=== PATIENT | male | born 1950 | race Caucasian/White ===

== ENCOUNTER → 2018-01-02 11:38 | Outpatient (CLI) | payer MEDICARE, OTHER, SELFPAY ==
[2018-01-02 12:23] LABS: Add Manual Diff / Slide Review NO; Basophils Percent Auto 0.3 % (0-2); Eosinophils Percent Auto 0.3 % (2-4); Hematocrit 41.7 % (41-53); Hemoglobin 14.5 g/dL (13.5-17.5); Lymphocytes Percent Auto 16.1 % (25-40); Mean Corpuscular HGB Conc 34.8 % (30-36); Mean Corpuscular Hemoglobin 32.9 PG (26-34); Mean Corpuscular Volume 94.5 fL (80-100); Monocytes Percent Auto 8.6 % (3-14); Neutrophils Absolute Auto 5400 /uL (3000-5900); Neutrophils Percent Auto 74.7 % (50-75); Platelet Count 112 X10^3/uL (150-400); Red Blood Cell Count 4.41 X10^6/uL (4.5-5.9); Red Cell Distribution Width 13.2 % (11.6-14.8); White Blood Cell Count 7.3 X10^3/uL (4.5-11.0)
[2018-01-02 12:35] LABS: HEMOLYSIS < 15 (0-50); Potassium 4.1 mmol/L (3.4-5.1)
[2018-01-02 12:36] LABS: Alanine Aminotransferase 23 IU/L (21-72); Albumin 4.2 g/dL (3.5-5.0); Albumin Globulin Ratio 1.6 (1.0-2.8); Alkaline Phosphatase 60 U/L (38-126); Aspartate Aminotransferase 27 IU/L (17-59); BUN Creatinine Ratio 14.4 (6-22); Blood Urea Nitrogen 13 mg/dL (9-20); Calcium 9.3 mg/dL (8.4-10.2); Carbon Dioxide 30 mmol/L (22-32); Chloride 106 mmol/L (98-107); Estimated Glomerular Filt Rate > 60.0 mL/min (>60); Globulin 2.6 g/dL (1.7-4.1); Glucose 94 mg/dL (80-110); Sodium 145 mmol/L (137-145); Total Protein 6.8 g/dL (6.3-8.2)
[2018-01-02 13:03] LABS: Prostate Specific Antigen Scrn 0.835 ng/mL (0.1-4.0)
[2018-01-02 13:21] LABS: Thyroid Stimulating Hormone 1.18 uIU/mL (0.47-4.68)
== END ==
PROVIDERS: Family Provider Family Medicine; PCP Family Medicine; Visit Provider Family Medicine
DX: R07.9 Chest pain, unspecified (principal)
CPT/HCPCS: 36415; 80053; 84443; 85025; G0103

== ENCOUNTER → 2018-05-07 08:54 | Outpatient (CLI) | payer MEDICARE, OTHER, SELFPAY ==
--- NOTE | 2018-05-07 08:57 | DI.RAD.S_ITS ---
PROCEDURE: XR CHEST 2V INDICATIONS: pressure injury TECHNIQUE: 2 views of the chest were acquired. COMPARISON: None. FINDINGS: Surgical changes and devices: None. Lungs and pleura: No pleural effusions or pneumothorax. Lungs are clear. Mediastinum: Mediastinal contours are normal. Heart size is normal. Bones and chest wall: No suspicious bony abnormalities. Soft tissues appear unremarkable. IMPRESSION: No acute disease. Dictated by: Andrew Graf M.D. on 05/07/2018 at 12:11 Approved by: Andrew Grfa M.D. on 05/07/2018 at 12:12
== END ==
PROVIDERS: Family Provider Family Medicine; PCP Family Medicine; Visit Provider Family Medicine
DX: S29.8XXA Other specified injuries of thorax, initial encounter (principal); R07.9 Chest pain, unspecified
CPT/HCPCS: 71046

== ENCOUNTER → 2019-01-06 15:42 | Outpatient (CLI) | payer MEDICARE, OTHER, SELFPAY ==
--- NOTE | 2019-01-06 15:46 | DI.MRI.S_ITS ---
PROCEDURE: MR SHOULDER LT WO CON INDICATIONS: L shoulder pain TECHNIQUE: Noncontrast oblique coronal T2 fast spin echo with fat saturation, oblique sagittal T1 spin echo and T2 fast spin echo with fat saturation, axial T1 spin echo and T2 fast spin echo with fat saturation through the shoulder. COMPARISON: [facility], CR, XR SHOULDER 2+ VIEWS RIGHT, 12/27/2018, 16:12. [facility], MR, SHOULDER WITHOUT CONTRAST, 12/30/2013, 8:30. FINDINGS: Image quality: Excellent. Rotator cuff: Partial-thickness slitlike articular sided tear involving the footprint of the supraspinatus tendon image 7 series 8. Possible calcific tendinitis at the junction of the supraspinatus and infraspinatus tendons on image 18 series 9 although this is not definitely radiographically confirmed on the comparison study. There is supraspinatus tendinopathy. Interstitial tearing tendinopathy of the infraspinatus tendon, which extends to the musculotendinous junction. The teres minor tendon appears intact. Subscapularis tendinopathy and thickening with articular surface fraying. No rotator cuff muscle atrophy Bones and bursae: No bone marrow contusions or fractures. Moderate acromioclavicular joint degeneration. The acromion demonstrates conventional anatomy, without an os acromiale. Mild subacromial-subdeltoid bursitis. Capsule and soft tissues: Superior labral tear is seen, with bucket handle appearance on image 11 series 8. There is also long head biceps tendinopathy and a suspected complete rupture seen on image 7 series 6. The rotator interval appears normal, without fibrosis. The coracohumeral ligament is normal in thickness. IMPRESSION: Partial-thickness slitlike tear at the footprint of the supraspinatus tendon (PASTA lesion). Infraspinatus tendinopathy and interstitial tearing. Possible calcific tendinitis although not radiographically confirmed. Subscapular tendinopathy and articular surface fraying. Mild subacromial-subdeltoid bursitis. Superior labral tear with bucket handle configuration. There is also suspected high-grade versus complete rupture of the long head biceps tendon. Please correlate with exam findings. Dictated by: Andrew Graf M.D. on 01/06/2019 at 16:42 Approved by: Andrew Graf M.D. on 01/06/2019 at 16:52
== END ==
PROVIDERS: Family Provider Family Medicine; PCP Family Medicine; Visit Provider Orthopaedic Surgery
DX: M25.512 Pain in left shoulder (principal); M75.52 Bursitis of left shoulder; M75.112 Incomplete rotator cuff tear or rupture of left shoulder, not specified as traumatic; S43.492A Other sprain of left shoulder joint, initial encounter
CPT/HCPCS: 73221

== ENCOUNTER 2019-05-18 18:38 | Observation (INO) | payer MEDICARE, OTHER, SELFPAY ==
--- NOTE | 2019-05-18 18:48 | DI.RAD.S_ITS ---
PROCEDURE: XR CHEST 1V INDICATIONS: chest pain TECHNIQUE: One view of the chest was acquired. COMPARISON: [facility], CR, XR CHEST 2V, 05/07/2018, 8:58. FINDINGS: Surgical changes and devices: None. Lungs and pleura: Lungs are clear. No pleural effusions or pneumothorax. Mediastinum: Mediastinal contours appear normal. Heart size is normal. Bones and chest wall: No suspicious bony lesions. Overlying soft tissues appear unremarkable. IMPRESSION: No acute cardiopulmonary disease. Dictated by: Mary Montes M.D. on 05/18/2019 at 19:15 Approved by: Mary Montes M.D. on 05/18/2019 at 19:16
[2019-05-18 18:49] VITALS: BP 130/78; PULSE 79; RESP 20; TEMP 36.8; O2SAT 97; BMI 24.3
[2019-05-18 19:07] VITALS: BP 118/66; PULSE 69; RESP 12; O2SAT 93
[2019-05-18 19:20] LABS: Add Manual Diff / Slide Review NO; Basophils Absolute Auto 0 /uL (0-100); Basophils Percent Auto 0.5 % (0-2); Eosinophils Absolute Auto 0 /uL (0-450); Eosinophils Percent Auto 0.4 % (2-4); Hematocrit 43.7 % (41-53); Lymphocytes Absolute Auto 1500 /uL (1100-4500); Lymphocytes Percent Auto 20.7 % (25-40); Mean Corpuscular HGB Conc 34.2 % (30-36); Mean Corpuscular Hemoglobin 32.5 PG (26-34); Mean Corpuscular Volume 94.9 fL (80-100); Monocytes Absolute Auto 500 /uL (0-900); Neutrophils Absolute Auto 5200 /uL (1500-7000); Neutrophils Percent Auto 71.4 % (50-75); Platelet Count 104 X10^3/uL (150-400); Red Blood Cell Count 4.61 X10^6/uL (4.5-5.9); Red Cell Distribution Width 13.4 % (11.6-14.8); White Blood Cell Count 7.3 X10^3/uL (4.5-11.0)
--- NOTE | 2019-05-18 19:20 | ED_ITS ---
HPI - Chest Pain General Chief Complaint: Chest Pain Stated Complaint: light chest pain, pressure around eyes, lightheade Time Seen by Provider: 05/18/19 19:20 Source: patient Mode of arrival: Ambulatory History of Present Illness HPI narrative: 68-year-old gentleman with a history of hyperlipidemia presents with increasing exertional dyspnea. He has been having symptoms for a number of months it has been significantly worse in the last week and today while he was gardening noted that he had significant dyspnea some mild dizziness and diaphoresis with minor digging in the garden. This was significantly abnormal for him. His significant other notes that he was quite pale with the episode. It did resolve with rest. On presentation to the emergency department he is not having any chest pain dyspnea nausea or diaphoresis. He notes that his 74-year-old brother had a myocardial infarction just last week. He reports no fever, cough, chills, lower extremity edema, orthopnea, nausea, vomiting or diarrhea Related Data Home Medications Medication Instructions Recorded Confirmed ASCORBIC ACID (VITAMIN C) 1,000 mg PO Q DAY #0 01/02/18 05/18/19 Previous Rx's Medication Instructions Recorded atorvastatin [Lipitor] 10 mg PO HS #90 tab 12/16/18 ibuprofen 600 mg tablet See Rx Instructions .ROUTE 05/12/19 .COMPLEX #180 tablet Allergies Allergy/AdvReac Type Severity Reaction Status Date / Time No Known Drug Allergies Allergy Unknown Verified 05/18/19 18:52 Review of Systems Review of Systems ROS Unobtainable: All systems reviewed & are unremarkable except as noted in HPI and below Patient History Medical History Chronic back pain (Chronic 2003) Chronic cough (Chronic) Chronic headaches (Chronic 2010) Herpes (Chronic 1976) Shoulder pain (Chronic 2004) Surgical History Anesthesia (Resolved) History of right knee surgery (Resolved) History of shoulder surgery (Resolved 2006) History of shoulder surgery (Resolved 2006) Status post hernia repair (Resolved 2012) Family History Father Cancer Lung cancer Mother Cancer Brother No problems noted. Social History household members: significant other Smoking Status: Never smoker Smoking Status: Never smoker alcohol intake frequency: a few times a week Alcohol type: beer Substance Use Type: does not use Exam Narrative Exam Narrative: General: Healthy appearing, in no acute distress. Able to give a complete and coherent history. Well-nourished well-developed HEENT: Moist mucous membranes, normal sclera with reactive pupils, Neck: No JVD, supple Respiratory: Lungs are clear to auscultation, no wheezing no rales no rhonchi. Full and symmetrical air movement Cardiac: Regular rate and rhythm no murmurs no bruits Abdomen: Soft nontender good bowel tones, no flank pain Skin: Warm and dry, no rashes Neurologic: Grossly neurologically intact with no obvious asymmetries or abnormalities Extremities: No trauma, well perfused Psych: Cooperative, appropriate insight and affect Initial Vital Signs Initial Vital Signs: Vital Signs Temperature 98.2 F 05/18/19 18:49 Pulse Rate 79 05/18/19 18:49 Respiratory Rate 20 05/18/19 18:49 Blood Pressure 130/78 05/18/19 18:49 Pulse Oximetry 97 05/18/19 18:49 Scores HEART Score Heart Score history: Moderately Suspicious Heart Score EKG: Normal Heart Score Age: > or = 65 years old Heart Score risk factors: 1-2 risk factors Heart Score troponin: < or = to normal limit Heart Score Total: 4 Course Course Course Narrative: Rather convincing story for increasing exertional angina. Initial workup is unremarkable. Will admit for observation and further cardiac risk stratification. Case is reviewed with Dr. Blankenship. He agrees with hospital admission this evening. Findings and recommendations reviewed with patient who also agrees. Decision to Admit Date: 05/18/19 Decision to Admit time: 21:58 Orders Ordered: ED Orders 05/18/19 18:46 EKG-12 Lead Stat 05/18/19 18:48 XR chest 1V Stat 05/18/19 19:02 Complete Blood Count AUTO DIFF Stat Comprehensive Metabolic Panel Stat Lipase Stat Partial Thromboplastin Time Stat Prothrombin Time INR Stat Troponin & CK Cardiac Panel Stat 05/18/19 21:30 Troponin I Stat Acetaminophen (Tylenol) 650 mg PO Q6HR PRN PRN Reason: Fever/Mild Pain (1-3) Aspirin (Aspirin Ec) 325 mg PO DAILY ANTOINETTE Atorvastatin Calcium (Lipitor) 10 mg PO BEDTIME ANTOINETTE Last Admin: 12/29/19 23:58 Dose: Not Given Documented by: SANJAY Enoxaparin Sodium (Lovenox) 40 mg SUBCUT DAILY [facility] Sodium Chloride (Normal Saline 0.45%) 1,000 mls @ 100 mls/hr IV CONT [facility] Last Admin: 05/18/19 23:56 Dose: 100 mls/hr Documented by: SANJAY Morphine Sulfate (Morphine) 2 mg IV Q5MIN PRN PRN Reason: Chest Pain Naloxone HCl (Narcan) 0.2 mg IV Q2MIN PRN PRN Reason: Opiate Reversal Nitroglycerin (Nitrostat) 0.4 mg SL [id number] PRN PRN Reason: Chest Pain Ondansetron HCl (Zofran) 4 mg IV Q8HR PRN PRN Reason: Nausea And Vomiting Discontinued Medications Aspirin (Aspirin Ec) 324 mg PO NOW ONE Stop: 05/18/19 19:31 Last Admin: 05/18/19 19:36 Dose: Not Given Documented by: SHAE Vital Signs Vital signs: Vital Signs - 8 hr 05/18/19 18:49 05/18/19 19:07 05/18/19 20:10 Temperature 98.2 F Pulse Rate 79 69 64 Respiratory Rate 20 12 14 Blood Pressure 130/78 Blood Pressure [Left Arm] 118/66 120/75 Pulse Oximetry 97 93 98 05/18/19 21:00 Temperature Pulse Rate 65 Respiratory Rate 13 Blood Pressure Blood Pressure [Left Arm] 122/69 Pulse Oximetry 98 MDM - Chest Pain Lab Data Result diagrams: 05/18/19 19:02 05/18/19 19:02 Labs: Lab Results 05/18/19 05/18/19 05/18/19 Range/Units 19:02 19:02 19:02 WBC 7.3 (4.5-11.0) X10^3/uL RBC 4.61 (4.5-5.9) X10^6/uL Hgb 15.0 (13.5-17.5) g/dL Hct 43.7 (41-53) % MCV 94.9 (80-100) fL MCH 32.5 (26-34) PG MCHC 34.2 (30-36) % RDW 13.4 (11.6-14.8) % Plt Count 104 L (150-400) X10^3/uL Neut % (Auto) 71.4 (50-75) % Lymph % (Auto) 20.7 L (25-40) % [place] % (Auto) 7.0 (3-14) % Eos % (Auto) 0.4 L (2-4) % Baso % (Auto) 0.5 (0-2) % Neut # (Auto) 5200 (0409-3646) /uL Lymph # (Auto) 1500 (8850-1441) /uL [place] # (Auto) 500 (0-900) /uL Eos # (Auto) 0 (0-450) /uL Baso # (Auto) 0 (0-100) /uL PT 11.8 (10.1-12.7) SECONDS INR 1.0 (0.9-1.3) APTT 33 (26.4-36.2) SECONDS Sodium 140 (137-145) mmol/L Potassium 3.8 (3.4-5.1) mmol/L Chloride 106 (98-107) mmol/L Carbon Dioxide 27 (22-32) mmol/L BUN 18 (9-20) mg/dL Creatinine 1.00 (0.66-1.25) mg/dL Estimated GFR > 60.0 (>60) mL/min BUN/Creatinine Ratio 18.0 (6-22) Glucose 104 (80-110) mg/dL Calcium 9.3 (8.4-10.2) mg/dL Total Bilirubin 0.8 (0.2-1.3) mg/dL AST 31 (17-59) IU/L ALT 17 (<50) IU/L Alkaline Phosphatase 78 (38-126) U/L Total Creatine Kinase 98 (55-170) U/L CK-MB (CK-2) TNP CK-MB (CK-2) Rel Index TNP Troponin I < 0.012 (0.01-0.034) ng/mL B-Natriuretic Peptide (<100) Total Protein 6.8 (6.3-8.2) g/dL Albumin 4.3 (3.5-5.0) g/dL Globulin 2.5 (1.7-4.1) g/dL Albumin/Globulin Ratio 1.7 (1.0-2.8) Lipase 59 (23-300) U/L 05/18/19 05/18/19 Range/Units 19:02 21:30 WBC (4.5-11.0) X10^3/uL RBC (4.5-5.9) X10^6/uL Hgb (13.5-17.5) g/dL Hct (41-53) % MCV (80-100) fL MCH (26-34) PG MCHC (30-36) % RDW (11.6-14.8) % Plt Count (150-400) X10^3/uL Neut % (Auto) (50-75) % Lymph % (Auto) (25-40) % [place] % (Auto) (3-14) % Eos % (Auto) (2-4) % Baso % (Auto) (0-2) % Neut # (Auto) (0321-8493) /uL Lymph # (Auto) (5460-5003) /uL [place] # (Auto) (0-900) /uL Eos # (Auto) (0-450) /uL Baso # (Auto) (0-100) /uL PT (10.1-12.7) SECONDS INR (0.9-1.3) APTT (26.4-36.2) SECONDS Sodium (137-145) mmol/L Potassium (3.4-5.1) mmol/L Chloride (98-107) mmol/L Carbon Dioxide (22-32) mmol/L BUN (9-20) mg/dL Creatinine (0.66-1.25) mg/dL Estimated GFR (>60) mL/min BUN/Creatinine Ratio (6-22) Glucose (80-110) mg/dL Calcium (8.4-10.2) mg/dL Total Bilirubin (0.2-1.3) mg/dL AST (17-59) IU/L ALT (<50) IU/L Alkaline Phosphatase (38-126) U/L Total Creatine Kinase (55-170) U/L CK-MB (CK-2) CK-MB (CK-2) Rel Index Troponin I < 0.012 (0.01-0.034) ng/mL B-Natriuretic Peptide < 100 (<100) Total Protein (6.3-8.2) g/dL Albumin (3.5-5.0) g/dL Globulin (1.7-4.1) g/dL Albumin/Globulin Ratio (1.0-2.8) Lipase (23-300) U/L ECG Data Attestation: I personally reviewed and interpreted this ECG as follows: Interpretation: Normal sinus rhythm at a rate of 68. Normal axis normal intervals and no evidence of ischemia MDM Narrative Medical decision making narrative: 68-year-old gentleman with hypertension who has history of increasing exertional dyspnea worsening in both intensity and frequency. Episode today was associated with chest pain and some mild diaph oresis. Initial labs and EKG in the emergency department are unremarkable. His heart score is high enough that inpatient overnight stay is appropriate prior to additional cardiac risk stratification testing. He is admitted to Dr. Melgar's service with caring for him this evening Discharge Plan Departure Patient Disposition: Admitted as Observation Clinical Impression: Chest pain Qualifiers: Chest pain type: unspecified Qualified Code(s): R07.9 - Chest pain, unspecified Discharge Date/Time: 05/18/19 22:21 Admit Date/Time: 05/18/19 21:51 Admit Provider: Chandana Melgar
[2019-05-18 19:26] LABS: Prothrombin Time 11.8 SECONDS (10.1-12.7)
[2019-05-18 19:29] LABS: PTT Partial Thromboplastin Tim 33 SECONDS (26.4-36.2)
[2019-05-18 19:31] LABS: Alanine Aminotransferase 17 IU/L (<50); Albumin 4.3 g/dL (3.5-5.0); Albumin Globulin Ratio 1.7 (1.0-2.8); Alkaline Phosphatase 78 U/L (38-126); Aspartate Aminotransferase 31 IU/L (17-59); Bilirubin Total 0.8 mg/dL (0.2-1.3); Blood Urea Nitrogen 18 mg/dL (9-20); Calcium 9.3 mg/dL (8.4-10.2); Carbon Dioxide 27 mmol/L (22-32); Chloride 106 mmol/L (98-107); Creatine Kinase 98 U/L (55-170); Estimated Glomerular Filt Rate > 60.0 mL/min (>60); Globulin 2.5 g/dL (1.7-4.1); Glucose 104 mg/dL (80-110); HEMOLYSIS < 15 (0-50); Lipase 59 U/L (23-300); Potassium 3.8 mmol/L (3.4-5.1); Sodium 140 mmol/L (137-145); Total Protein 6.8 g/dL (6.3-8.2)
[2019-05-18] MEDS: ASPIRIN 81 MG CHEW TAB 324 MG (19:37)
[2019-05-18 19:42] LABS: Troponin I < 0.012 ng/mL (0.01-0.034)
[2019-05-18 20:10] VITALS: BP 120/75; PULSE 64; RESP 14; O2SAT 98
[2019-05-18 21:00] VITALS: BP 122/69; PULSE 65; RESP 13; O2SAT 98
--- NOTE | 2019-05-18 21:37 | PC.NURSE ---
drawn by lab
[2019-05-18 22:01] VITALS: BP 121/69; PULSE 60; O2SAT 98
[2019-05-18 22:08] LABS: Troponin I < 0.012 ng/mL (0.01-0.034)
[2019-05-18 22:31] VITALS: BMI 24.3
[2019-05-18 22:33] VITALS: BP 122/71; PULSE 58; RESP 16; TEMP 36.5; O2SAT 97
[2019-05-18 22:51] LABS: B Type Natriuretic Peptide < 100 (<100)
[2019-05-18] MEDS: SODIUM CHLORIDE 0.45% 1,000 ML 100 ML IV (23:56)
[2019-05-19] VITALS (9 sets, daily range): BP systolic 107–121; BP diastolic 50–75; PULSE 57–66; RESP 16–17; TEMP 36.3–36.7; O2SAT 95–99
--- NOTE | 2019-05-19 02:46 | PC.NURSE ---
Addendum entered by Fadumo Palacio R.N. 05/19/19 05:46: Pt was able to sleep as pain decreased, pt denies pain at this time. Tele reading have been SB, 1st AVB x2 this shift. Addendum entered by Fadumo Palacio R.N. 05/19/19 02:57: VSS, 114/75, 58 ,16 ,97% RA. After O2 in use for 5 minutes pt report improvement in pain. the burning sensation has been resolved. Addendum entered by Fadumo Palacio R.N. 05/19/19 02:52: Addendum entered by Fadumo Palacio R.N. 05/19/19 02:48: Pt has stated that he has chronic pain in shoulder and would like to see if the pain resolves on its' own. Ice pack applied to shoulder and O2 placed on patient at this time as well. Original Note: NOC NOTE Pt reported pain in left shoulder at 0240, rating it 7-8/10, describing it as a burning pain shooting down the arm from the shoulder. Pt was offered Nitro and he declined and Morhine and he declined that at well.
[2019-05-19 06:13] LABS: Add Manual Diff / Slide Review NO; Basophils Absolute Auto 0 /uL (0-100); Basophils Percent Auto 0.4 % (0-2); Eosinophils Absolute Auto 100 /uL (0-450); Eosinophils Percent Auto 1.2 % (2-4); Hematocrit 40.2 % (41-53); Hemoglobin 13.8 g/dL (13.5-17.5); Lymphocytes Absolute Auto 1600 /uL (1100-4500); Lymphocytes Percent Auto 31.7 % (25-40); Mean Corpuscular HGB Conc 34.4 % (30-36); Mean Corpuscular Hemoglobin 32.5 PG (26-34); Mean Corpuscular Volume 94.6 fL (80-100); Monocytes Absolute Auto 500 /uL (0-900); Monocytes Percent Auto 9.1 % (3-14); Neutrophils Absolute Auto 2900 /uL (1500-7000); Neutrophils Percent Auto 57.6 % (50-75); Platelet Count 99 X10^3/uL (150-400); Red Blood Cell Count 4.26 X10^6/uL (4.5-5.9); Red Cell Distribution Width 13.4 % (11.6-14.8)
[2019-05-19 06:25] LABS: Alanine Aminotransferase 14 IU/L (<50); Albumin 3.5 g/dL (3.5-5.0); Albumin Globulin Ratio 1.6 (1.0-2.8); Alkaline Phosphatase 63 U/L (38-126); Aspartate Aminotransferase 25 IU/L (17-59); BUN Creatinine Ratio 21.1 (6-22); Bilirubin Total 0.7 mg/dL (0.2-1.3); Blood Urea Nitrogen 19 mg/dL (9-20); Calcium 8.5 mg/dL (8.4-10.2); Carbon Dioxide 27 mmol/L (22-32); Chloride 108 mmol/L (98-107); Cholesterol 154 mg/dL (140-199); Estimated Glomerular Filt Rate > 60.0 mL/min (>60); Globulin 2.2 g/dL (1.7-4.1); Glucose 112 mg/dL (80-110); HDL Cholesterol 41 mg/dL (40-60); HEMOLYSIS < 15 (0-50); LDL Cholesterol Calculated 97 mg/dL (<100); Potassium 4.1 mmol/L (3.4-5.1); Sodium 141 mmol/L (137-145); Total Protein 5.7 g/dL (6.3-8.2); Triglycerides 80 mg/dL (35-150)
[2019-05-19 06:33] LABS: Troponin I < 0.012 ng/mL (0.01-0.034)
--- NOTE | 2019-05-19 06:43 | DI.ECHO.S_ITS ---
[place] +---------+ [facility] +---------+ : : [address] : : : : [id number] : : : : Phone: [phone]---------+ Echocardiogram Report + + :Name: JOSE ALEJANDRO CASTELAN Study Date: 05/19/2019 Height: 70 in : :[facility] Weight: 186 lb : : Gender: Male BSA: 2.0 m2 : :: 1950 Age: 68 yrs BP: 107/71 mmHg: :Reason For Study: Chest pain : :Ordering Physician: Dr. Ellington : :aRmón Performed By: Bib Lawrence : :Referring: KIZZY BAKER : + + Interpretation Summary The ejection fraction is estimated to be 55-60%. There is mild aortic valve sclerosis. The ascending aorta is mildly enlarged. Procedure: A two-dimensional transthoracic echocardiogram with color flow and Doppler was performed. The study quality was technically adequate. There is no prior echocardiogram noted for this patient. The patient was in a bradycardic rhythm during the exam. Left Ventricle: The left ventricle is normal in size. There is normal left ventricular wall thickness. Left ventricular systolic function is normal. The ejection fraction is estimated to be 55-60%. Left ventricular wall motion is normal. Right Ventricle: The right ventricle is mild to moderately dilated. The right ventricular systolic function is normal. Atria: The left atrial size is normal. The right atrium is mild to moderately dilated. The interatrial septum is intact with no evidence for an atrial septal defect. Mitral Valve: The mitral valve is normal in structure and function. There is no mitral regurgitation noted. Aortic Valve: The aortic valve is trileaflet. There is mild aortic valve sclerosis. The aortic valve opens well. No aortic regurgitation is present. Tricuspid Valve: The tricuspid valve is normal in structure and function. There is trace tricuspid regurgitation. The right ventricular systolic pressure is estimated to be at least 19 mmHg based on an estimated right atrial pressure of 3 mm Hg. Pulmonic Valve: The pulmonic valve is normal in structure and function. There is trace pulmonic regurgitation. Great Vessels: The aortic root is borderline dilated. The ascending aorta is mildly enlarged. The pulmonary artery is normal size. The IVC is of normal diameter and collapses greater than 50% with a sniff. This suggests a low right atrial pressure of 3 mm Hg. Pericardium/ Pleura There is no pericardial effusion. There is no pleural effusion. MMode/2D Measurements & Calculations LVIDd: 4.3 cm LVOT diam: 2.4 cm LVIDs: 3.0 cm Ao root diam: 3.7 cm FS: 30.5 % Aortic Jxn: 3.4 cm EPSS: 0.53 cm asc Aorta Diam: 3.9 cm IVSd: 1.0 cm LVPWd: 1.1 cm LV vences. diameter/BSA (cm/m^2): 2.1 LV sys. diameter/BSA (cm/m^2): 1.5 LA A2 area: 20.1 cm2 RA long axis: 5.6 cm LA A4 area: 17.7 cm2 RA area: 22.3 cm2 LA length (vol): 5.1 cm RA vol: 75.4 ml LA vol: 58.6 ml RA : 37.3 ml/m2 LA vol index: 29.0 ml/m2 TAPSE: 2.2 cm Doppler Measurements & Calculations Ao V2 max: 101.4 cm/sec LVOT Max Zeke: 94.2 cm/sec Ao V2 mean: 69.5 cm/sec LV V1 max P.6 mmHg Ao max P.1 mmHg LV V1 VTI: 20.5 cm Ao mean P.2 mmHg TJ(I,D): 4.0 cm2 Ao V2 VTI: 22.8 cm TJ(V,D): 4.1 cm2 sev ratio: 0.90 TJ indexed to BSA (cm^2/m^2): 2.0 MV E max zeke: 61.6 cm/sec TR max zeke: 201.8 cm/sec MV A max zeke: 99.8 cm/sec TR max P.3 mmHg MV E/A: 0.62 PA V2 max: 72.4 cm/sec Med Peak E' Zeke: 7.4 cm/sec PA V2 mean: 53.0 cm/sec E/E' med: 8.3 PA mean P.3 mmHg Lat Peak E' Zeke: 7.6 cm/sec PA Accel Time: 0.13 sec E/E' lat: 8.1 E/e' average: 8.2 MV dec time: 0.29 sec SV(LVOT): 90.1 ml Reading Physician:01:07 PM
--- NOTE | 2019-05-19 08:11 | PM.HP.1 ---
History of Present Illness History of Present Illness Date Patient Seen: 05/19/19 Time Patient Seen: 08:30 Chief complaint: light chest pain, pressure around eyes, lightheade Narrative: Chest pain Patient admitted last night through the ER for chest pain. He has had none since admission. Patient basically is felt sluggish last 4 months or so. No chest pain no shortness of breath however disc. This felt like he had lack of energy. 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 Past week or so he has noticed increasing shortness of breath with minimal activity as a week progress this is shortness of breath seem to be easier induced with minimal activity. He has had no shortness of breath at rest no PND or orthopnea. Yesterday he developed retrosternal chest pain that was not terribly severe but was present and was a new symptom. He also learned that his brother had had a TIA underwent cardiac catheterization and is was to have a stent placed in 1 of his coronary arteries recently. Female friend wonders if patient has sleep apnea. Patient History Medical History Chronic back pain (Chronic 2003) Chronic cough (Chronic) Chronic headaches (Chronic 2010) Herpes (Chronic 1976) Shoulder pain (Chronic 2004) Surgical History Anesthesia (Resolved) History of right knee surgery (Resolved) History of shoulder surgery (Resolved 2006) History of shoulder surgery (Resolved 2006) Status post hernia repair (Resolved 2012) Family & Social History Family History Father Cancer Lung cancer Mother Cancer Brother No problems noted. Social History: household members significant other Prior Living Arrangements House Safety & Behavioral: Feels Safe in Current Yes Environment Been Physically Hurt or No Threatened By a Person Suicidal Ideation Description None Suicide Plan Description No Plan Tobacco & Substance use: Smoking Status Never smoker alcohol intake frequency a few times a week Substance Use Type does not use Meds Home Medications and Allergies Home Medications Medication Instructions Recorded Confirmed Type ASCORBIC ACID (VITAMIN C) 1,000 mg PO Q DAY #0 01/02/18 05/18/19 History atorvastatin [Lipitor] 10 mg PO HS #90 tab 12/16/18 05/18/19 Rx ibuprofen 600 mg tablet See Rx Instructions .ROUTE 05/12/19 05/18/19 Rx .COMPLEX #180 tablet Allergies Allergy/AdvReac Type Severity Reaction Status Date / Time No Known Drug Allergies Allergy Unknown Verified 05/18/19 18:52 Review of Systems Review of Systems ROS Unobtainable: All systems reviewed & are unremarkable except as noted in HPI and below Exam Vital Signs (past 8 hours): - 05/19/19 02:45 05/19/19 05:52 05/19/19 07:38 Temperature 97.4 F L Pulse Rate 58 L 58 L Respiratory Rate 16 16 Blood Pressure 114/75 114/74 Pulse Oximetry 97 99 98 05/19/19 07:55 Temperature 97.7 F Pulse Rate 57 L Respiratory Rate 17 Blood Pressure 107/71 Pulse Oximetry 95 Oxygen Delivery Method Room Air Oxygen Flow Rate 0 Narrative Exam Narrative: Patient examined hospital bed appears in no distress. Gen.: Patient looks well Skin: Warm well perfused. No prominent lesions. Nonicteric. HEENT: PERRL., normal EOM, external ears canals TMs normal, nasal mucosa normal and midline septum, oropharynx without lesions. Neck: Trachea midline. Thyroid nontender and not enlarged. Carotids without bruits. No lymphadenopathy Back: No obvious deformity or tenderness. Chest: Clear to P&A. Symmetric. CV: RRR no murmur or gallop. No JVD. Abdomen: No masses bruits tenderness or visceromegaly. Neuro: Cranial nerves II through XII grossly intact. Sensory and motor exams intact. Gait normal. Mental status: Intact for screening Extremities: No cyanosis clubbing or edema Musculoskeletal: No gross deformities Lymphatics: Negative for lymphadenopathy, supraclavicular axillary or inguinal Objective Labs Result Diagrams: 05/19/19 05:50 05/19/19 05:50 Labs: Laboratory Results - last 24 hr 05/18/19 05/18/19 05/18/19 19:02 19:02 19:02 WBC 7.3 RBC 4.61 Hgb 15.0 Hct 43.7 MCV 94.9 MCH 32.5 MCHC 34.2 RDW 13.4 Plt Count 104 L Neut % (Auto) 71.4 Lymph % (Auto) 20.7 L [place] % (Auto) 7.0 Eos % (Auto) 0.4 L Baso % (Auto) 0.5 Neut # (Auto) 5200 Lymph # (Auto) 1500 [place] # (Auto) 500 Eos # (Auto) 0 Baso # (Auto) 0 PT 11.8 INR 1.0 APTT 33 Sodium 140 Potassium 3.8 Chloride 106 Carbon Dioxide 27 BUN 18 Creatinine 1.00 Estimated GFR > 60.0 BUN/Creatinine Ratio 18.0 Glucose 104 Calcium 9.3 Total Bilirubin 0.8 AST 31 ALT 17 Alkaline Phosphatase 78 Total Creatine Kinase 98 CK-MB (CK-2) TNP CK-MB (CK-2) Rel Index TNP Troponin I < 0.012 B-Natriuretic Peptide Total Protein 6.8 Albumin 4.3 Globulin 2.5 Albumin/Globulin Ratio 1.7 Triglycerides Cholesterol LDL Cholesterol, Calc HDL Cholesterol Lipase 59 05/18/19 05/18/19 05/19/19 19:02 21:30 05:50 WBC 5.0 RBC 4.26 L Hgb 13.8 Hct 40.2 L MCV 94.6 MCH 32.5 MCHC 34.4 RDW 13.4 Plt Count 99 L Neut % (Auto) 57.6 Lymph % (Auto) 31.7 [place] % (Auto) 9.1 Eos % (Auto) 1.2 L Baso % (Auto) 0.4 Neut # (Auto) 2900 Lymph # (Auto) 1600 [place] # (Auto) 500 Eos # (Auto) 100 Baso # (Auto) 0 PT INR APTT Sodium Potassium Chloride Carbon Dioxide BUN Creatinine Estimated GFR BUN/Creatinine Ratio Glucose Calcium Total Bilirubin AST ALT Alkaline Phosphatase Total Creatine Kinase CK-MB (CK-2) CK-MB (CK-2) Rel Index Troponin I < 0.012 B-Natriuretic Peptide < 100 Total Protein Albumin Globulin Albumin/Globulin Ratio Triglycerides Cholesterol LDL Cholesterol, Calc HDL Cholesterol Lipase 05/19/19 05/19/19 05:50 05:50 WBC RBC Hgb Hct MCV MCH MCHC RDW Plt Count Neut % (Auto) Lymph % (Auto) [place] % (Auto) Eos % (Auto) Baso % (Auto) Neut # (Auto) Lymph # (Auto) [place] # (Auto) Eos # (Auto) Baso # (Auto) PT INR APTT Sodium 141 Potassium 4.1 Chloride 108 H Carbon Dioxide 27 BUN 19 Creatinine 0.90 Estimated GFR > 60.0 BUN/Creatinine Ratio 21.1 Glucose 112 H Calcium 8.5 Total Bilirubin 0.7 AST 25 ALT 14 Alkaline Phosphatase 63 Total Creatine Kinase CK-MB (CK-2) CK-MB (CK-2) Rel Index Troponin I < 0.012 B-Natriuretic Peptide Total Protein 5.7 L Albumin 3.5 Globulin 2.2 Albumin/Globulin Ratio 1.6 Triglycerides 80 Cholesterol 154 LDL Cholesterol, Calc 97 HDL Cholesterol 41 Lipase labs reviewed. Of significance troponin levels negative x2. LDL cholesterol 97 CBC is normal platelet count of [id number] has been stable Chest x-ray unremarkable. EKG unremarkable Assessment & Plan Assessment & Plan narrative: 1. Chest pain certainly consistent coronary artery disease warrant further workup with the stress test and echo pending. 2. Shortness of breath at additionally could be related to a from problem 1. But other issues may well be hypothyroidism. TSH is ordered as well as testosterone level. 3. Patient readily admits he has been stressed out by real state issues perhaps some of this may be related to that. 4. Patient denies depression but has been for some time dying of ovarian cancer. 5. Hyperlipidemia stable. 6. Patient to be monitored this morning and above tests to be ordered. Assuming they had these are done today patient will be discharged later today yet to be determined
--- NOTE | 2019-05-19 09:07 | PC.NURSE ---
Addendum entered by Hanna Mccabe R.N. 05/19/19 14:53: Back from stress test and back on tele. Continues to state he feels good. Denies chest pain/pressure/palpitations or SOB. Wondering when Dr Melgar might let him go home. This fiction and nonfiction prose writer placed call to Dr Melgar's office and left message asking him to call back to discuss plan. Patient aware and agreeable. Denies needs at this time. Addendum entered by Hanna Mccabe R.N. 05/19/19 13:55: Off floor for stress test approx [id number] Addendum entered by Hanna Mccabe R.N. 05/19/19 12:49: Spoke with [facility]uc [facility] before lunch, asked if patient is ok to eat and they said yes, a light lunch that he should be done with by 1230 at the latest- same discussed with patient and he agreed to comply. Informed patient that, as of now, his stress test should be happening somewhere around 1400. Original Note: Stress test: Spoke with nuc med at breakfast time. They said to go ahead with breakfast, but no caffeine. This fiction and nonfiction prose writer spoke with patient and , informed no caffeine until after stress test (including decaf and chocolate). They verbalized understanding of the same.
[2019-05-19] MEDS: SODIUM CHLORIDE 0.9% FLUSH 10 ML IV (09:53)
[2019-05-19] MEDS: ASPIRIN EC 325 MG TABLET PO (10:02)
[2019-05-19 10:57] LABS: Cholesterol 164 mg/dL (140-199); HDL Cholesterol 43 mg/dL (40-60); LDL Cholesterol Calculated 108 mg/dL (<100); Triglycerides 64 mg/dL (35-150)
--- NOTE | 2019-05-19 13:29 | CM.DANOTE ---
DCP/Assessment: Reviewed chart. Patient is a 68yr old male admitted to I.. with chest pain. PCP is Dr. Melgar. Primary payor is 1)Medicare 2)[facility]. Met with patient explained CM/SW role. Patient alert and oriented during interview. Patient reports that he walks daily and keeps himself in good health. Patient lost his spouse to cancer in 2018. Patient now resides with his significant other/Ashly. Patient does not anticipate any d/c planning needs. Patient reports being completely I with all ADL's. P: Home when stable. ROXANNA Grimaldo Discharge Planning/Care Management CM Discharge Assessment Start: 05/19/19 13:17 Freq: Status: Active Protocol: Document 05/19/19 13:17 KJS (Rec: 05/19/19 13:29 KJS [id number]) Discharge Planning Assessment Assigned Director Of Nursing ROXANNA Grimaldo Contact Information Ashly (significant other) [phone] Advance Directives? No History Provided By Patient,Medical Record Prior Living Arrangements House Household Members significant other Type of transporation used prior to Drives own vehicle admit Independent with ADL's Yes Is patient alert and oriented? Yes Caregiver for Another No Barriers to Discharge No Discharge Plan Home Transportation Arrangement Significant other to provide transport. Referrals Initiated None needed Whiteboard Updated in Patient Room with Yes name and ext. # of Director Of Nursing Review Status In Process Next Review Type Continued Stay Review
--- NOTE | 2019-05-19 16:49 | PM.DS.1 ---
History of Present Illness History of Present Illness Chief complaint: light chest pain, pressure around eyes, lightheade Narrative: Chest pain Patient admitted last night through the ER for chest pain. He has had none since admission. Patient basically is felt sluggish last 4 months or so. No chest pain no shortness of breath however disc. This felt like he had lack of energy. 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 Past week or so he has noticed increasing shortness of breath with minimal activity as a week progress this is shortness of breath seem to be easier induced with minimal activity. He has had no shortness of breath at rest no PND or orthopnea. Yesterday he developed retrosternal chest pain that was not terribly severe but was present and was a new symptom. He also learned that his brother had had a TIA underwent cardiac catheterization and is was to have a stent placed in 1 of his coronary arteries recently. Female friend wonders if patient has sleep apnea. Discharge Providers Provider Date of admission: 05/18/19 21:51 Discharge Date: 05/19/19 Primary care physician: Chandana Melgar MD Discharge provider: Chandana Melgar MD Summary Hospital Course Discharge Diagnosis: 1. Chest pain 2. Normal echocardiogram. 3. Normal nuclear stress test. 4. Hyperlipidemia stable Hospital Course: The patient was admitted for evaluation of chest pain. He also had associated shortness of breath. Evaluation included chest x-ray lab work thyroid testosterone all of which were normal. Echocardiogram showed ejection fraction 60% with normal valves. Nuclear stress test performed this afternoon that was totally normal no evidence for any ischemic heart disease Status at Discharge Cognitive/behavioral status at discharge: at baseline, oriented Functional status at discharge: independent ambulation Overall status at discharge: patient is back to baseline Exam Vital Signs (past 8 hours): - 05/19/19 11:29 05/19/19 15:50 Temperature 97.6 F 97.4 F L Pulse Rate 59 L 66 Respiratory Rate 17 17 Blood Pressure 114/71 107/68 Pulse Oximetry 96 97 Oxygen Delivery Method Room Air Oxygen Flow Rate 0 Objective Labs Result Diagrams: 05/19/19 05:50 05/19/19 05:50 Labs: Laboratory Results - last 24 hr 05/18/19 05/18/19 05/18/19 19:02 19:02 19:02 WBC 7.3 RBC 4.61 Hgb 15.0 Hct 43.7 MCV 94.9 MCH 32.5 MCHC 34.2 RDW 13.4 Plt Count 104 L Neut % (Auto) 71.4 Lymph % (Auto) 20.7 L [place] % (Auto) 7.0 Eos % (Auto) 0.4 L Baso % (Auto) 0.5 Neut # (Auto) 5200 Lymph # (Auto) 1500 [place] # (Auto) 500 Eos # (Auto) 0 Baso # (Auto) 0 PT 11.8 INR 1.0 APTT 33 Sodium 140 Potassium 3.8 Chloride 106 Carbon Dioxide 27 BUN 18 Creatinine 1.00 Estimated GFR > 60.0 BUN/Creatinine Ratio 18.0 Glucose 104 Calcium 9.3 Total Bilirubin 0.8 AST 31 ALT 17 Alkaline Phosphatase 78 Total Creatine Kinase 98 CK-MB (CK-2) TNP CK-MB (CK-2) Rel Index TNP Troponin I < 0.012 B-Natriuretic Peptide Total Protein 6.8 Albumin 4.3 Globulin 2.5 Albumin/Globulin Ratio 1.7 Triglycerides Cholesterol LDL Cholesterol, Calc HDL Cholesterol Lipase 59 TSH Testosterone Level 05/18/19 05/18/19 05/19/19 19:02 21:30 05:50 WBC 5.0 RBC 4.26 L Hgb 13.8 Hct 40.2 L MCV 94.6 MCH 32.5 MCHC 34.4 RDW 13.4 Plt Count 99 L Neut % (Auto) 57.6 Lymph % (Auto) 31.7 [place] % (Auto) 9.1 Eos % (Auto) 1.2 L Baso % (Auto) 0.4 Neut # (Auto) 2900 Lymph # (Auto) 1600 [place] # (Auto) 500 Eos # (Auto) 100 Baso # (Auto) 0 PT INR APTT Sodium Potassium Chloride Carbon Dioxide BUN Creatinine Estimated GFR BUN/Creatinine Ratio Glucose Calcium Total Bilirubin AST ALT Alkaline Phosphatase Total Creatine Kinase CK-MB (CK-2) CK-MB (CK-2) Rel Index Troponin I < 0.012 B-Natriuretic Peptide < 100 Total Protein Albumin Globulin Albumin/Globulin Ratio Triglycerides Cholesterol LDL Cholesterol, Calc HDL Cholesterol Lipase TSH Testosterone Level 05/19/19 05/19/19 05/19/19 05:50 05:50 09:50 WBC RBC Hgb Hct MCV MCH MCHC RDW Plt Count Neut % (Auto) Lymph % (Auto) [place] % (Auto) Eos % (Auto) Baso % (Auto) Neut # (Auto) Lymph # (Auto) [place] # (Auto) Eos # (Auto) Baso # (Auto) PT INR APTT Sodium 141 Potassium 4.1 Chloride 108 H Carbon Dioxide 27 BUN 19 Creatinine 0.90 Estimated GFR > 60.0 BUN/Creatinine Ratio 21.1 Glucose 112 H Calcium 8.5 Total Bilirubin 0.7 AST 25 ALT 14 Alkaline Phosphatase 63 Total Creatine Kinase CK-MB (CK-2) CK-MB (CK-2) Rel Index Troponin I < 0.012 B-Natriuretic Peptide Total Protein 5.7 L Albumin 3.5 Globulin 2.2 Albumin/Globulin Ratio 1.6 Triglycerides 80 64 Cholesterol 154 164 LDL Cholesterol, Calc 97 108 H HDL Cholesterol 41 43 Lipase TSH Testosterone Level 05/19/19 05/19/19 09:50 09:50 WBC RBC Hgb Hct MCV MCH MCHC RDW Plt Count Neut % (Auto) Lymph % (Auto) [place] % (Auto) Eos % (Auto) Baso % (Auto) Neut # (Auto) Lymph # (Auto) [place] # (Auto) Eos # (Auto) Baso # (Auto) PT INR APTT Sodium Potassium Chloride Carbon Dioxide BUN Creatinine Estimated GFR BUN/Creatinine Ratio Glucose Calcium Total Bilirubin AST ALT Alkaline Phosphatase Total Creatine Kinase CK-MB (CK-2) CK-MB (CK-2) Rel Index Troponin I B-Natriuretic Peptide Total Protein Albumin Globulin Albumin/Globulin Ratio Triglycerides Cholesterol LDL Cholesterol, Calc HDL Cholesterol Lipase TSH 1.50 Testosterone Level 508.0 Discharge Plan Discharge Plan Patient Disposition: Home Discharge comment: Appointment with Dr. Melgar in 2 weeks Sleep study to be scheduled as an outpatient Discharge orders & Medications Prescriptions: Continued ASCORBIC ACID (VITAMIN C) 1,000 mg PO Q DAY Qty: 0 RF: 0 atorvastatin [Lipitor] 10 mg tablet 10 mg PO HS Qty: 90 RF: 1 ibuprofen 600 mg tablet See Rx Instructions .ROUTE .COMPLEX Qty: 180 RF: 0 Follow up/Referrals: Chandana Melgar MD [Primary Care Provider] - Discharge Health Status Multidrug resistant organism: No MDRO Diet/Activity/Treatments Diet: Diet as Tolerated Activity: As tolerated Discharge Data Primary Care Provider: Chandana Melgar Attending Provider: Chandana Melgar Admit Date/Time: 05/18/19 21:51
--- NOTE | 2019-05-19 17:20 | PC.NURSE ---
Katerine shift note: Patient discharge home per Dr. Meglar. No c/o chest pain, SOB or dizziness. Discussed importance of F/U with Dr. Melgar in two weeks, diet, activity and medications. Verbalized understanding of instructions. Ambulating independently in room with SO at side. Discharge via private vehicle with belongings.
--- NOTE | 2019-05-19 18:12 | DI.NM.S_ITS ---
DATE OF SERVICE: 05/19/2019 PROCEDURE: Exercise perfusion study. INDICATIONS: Chest pain. RADIOPHARMACEUTICAL: 16.6 mCi of technetium-99m Myoview IV was injected at stress. This is an exercise perfusion study only. CARDIAC STRESS: Patient underwent exercise perfusion stress test under the supervision of an attending staff. Patient walked on Samir protocol for 9 minutes 04 seconds and achieved 90% of target heart rate and normal blood pressure response. Baseline EKG revealed sinus rhythm. Stress EKG did not reveal any obvious inducible ischemic changes. There were no significant arrhythmias. Patient didn't have any anginal pains. He achieved -24% of functional aerobic impairment and 10.1 METs of workload. RAW DATA: There is increased of diaphragmatic activity. GATED STUDY: Stress LV ejection fraction 81% without any obvious wall motion abnormalities. Stress end-diastolic volume is 113 mL. Lung/heart ratio is 0.32, which is within normal limits. MYOCARDIAL PERFUSION SCAN: Stress supine and stress prone images were compared to each other. Stress supine images revealed [id number] size, mildly decreased perfusion of inferior wall and inferior apex which got completely resolved during prone images suggestive of diaphragmatic tissue attenuation artifact. CONCLUSION: I will call this study a normal myocardial perfusion study with evidence of diaphragmatic tissue attenuation artifact which got resolved during prone images. Patient had good exercise tolerance. No ischemic changes. No significant anginal symptoms. No significant sustained arrhythmias. Overall, this is a low-risk myocardial perfusion scan. Phil Craft - HANNAH/kasi/ab doc#: [id number]/job#: [id number] dd: 05/19/2019 16:48:00 dt: 05/19/2019 18:05:00 DICTATING MD/COPIES TO: Delmis Gomez MD COPIES MNE: ESMER
== END 2019-05-19 17:38 | disposition home or self-care (01) ==
LOC: ED 19:20 → AC 21:52
PROVIDERS: Family Medicine; Admitting Provider Family Medicine; Emergency Provider Emergency Medicine; Family Provider Family Medicine; PCP Family Medicine; Visit Provider Family Medicine
DX: R07.9 Chest pain, unspecified (principal); R06.02 Shortness of breath; R42 Dizziness and giddiness; E78.5 Hyperlipidemia, unspecified
CPT/HCPCS: 36415; 71045; 78451; 80053; 80061; 82550; 83690; 83880; 84403; 84443; 84484; 85025; 85610; 85730; 93005; 93016; 93017; 93018; 93306; 99284; 99285; G0378; A9502; J7050

== ENCOUNTER → 2019-07-22 10:18 | Outpatient (CLI) | payer MEDICARE, OTHER, SELFPAY ==
--- NOTE | 2019-07-22 10:23 | DI.RAD.S_ITS ---
PROCEDURE: XR HAND RT MIN 3V INDICATIONS: finger injury TECHNIQUE: 3 views of the hand(s) acquired. COMPARISON: None. FINDINGS: Bones: No fractures or dislocations. Carpal bones are normally aligned. No suspicious bony lesions. Soft tissues: No suspicious soft tissue calcifications. IMPRESSION: No acute radiographic findings. If pain persists, followup imaging in 5-7 days is recommended to exclude occult fracture. Dictated by: Teena Jordan M.D. on 07/22/2019 at 15:31 Approved by: Teena Jordan M.D. on 07/22/2019 at 15:31
== END ==
PROVIDERS: Family Provider Family Medicine; PCP Family Medicine; Referring Provider Family Medicine; Visit Provider Family Medicine
DX: S69.91XA Unspecified injury of right wrist, hand and finger(s), initial encounter (principal); M79.89 Other specified soft tissue disorders; X58.XXXA Exposure to other specified factors, initial encounter
CPT/HCPCS: 73130

== ENCOUNTER → 2019-07-28 09:00 | Outpatient (CLI) | payer MEDICARE, OTHER, SELFPAY ==
--- NOTE | 2019-07-28 09:02 | DI.RAD.S_ITS ---
PROCEDURE: XR HAND RT MIN 3V INDICATIONS: Finger injury, right hand, non-healing TECHNIQUE: 3 views of the hand(s) acquired. COMPARISON: [facility], CR, XR HAND RT MIN 3V, 07/22/2019, 10:22. FINDINGS: Bones: No fractures or dislocations. Carpal bones are normally aligned. No suspicious bony lesions. Chondrocalcinosis and/or small loose bodies project in the ulnocarpal compartment. This appears unchanged. First CMC and triscaphe joint degeneration Chronic deformity of the fifth metacarpal Soft tissues: No suspicious soft tissue calcifications. IMPRESSION: No fracture. If the patient's pain or other symptoms persist, consider further evaluation with MRI Chronic degenerative changes as above Dictated by: Andrew Graf M.D. on 07/28/2019 at 14:33 Approved by: Andrew Graf M.D. on 07/28/2019 at 14:36
== END ==
PROVIDERS: Family Provider Family Medicine; PCP Family Medicine; Referring Provider Family Medicine; Visit Provider Family Medicine
DX: S69.91XA Unspecified injury of right wrist, hand and finger(s), initial encounter (principal); M18.11 Unilateral primary osteoarthritis of first carpometacarpal joint, right hand; X58.XXXA Exposure to other specified factors, initial encounter
CPT/HCPCS: 73130

== ENCOUNTER → 2020-04-23 09:43 | Outpatient (CLI) | payer MEDICARE, OTHER, SELFPAY ==
[2020-04-23 10:40] LABS: Add Manual Diff / Slide Review NO; Basophils Absolute Auto 0 /uL (0-100); Basophils Percent Auto 0.3 % (0-2); Eosinophils Absolute Auto 100 /uL (0-450); Eosinophils Percent Auto 0.9 % (2-4); Hematocrit 43.3 % (41-53); Hemoglobin 14.7 g/dL (13.5-17.5); Lymphocytes Absolute Auto 1800 /uL (1100-4500); Lymphocytes Percent Auto 32.3 % (25-40); Mean Corpuscular HGB Conc 34.1 % (30-36); Mean Corpuscular Hemoglobin 32.4 PG (26-34); Monocytes Absolute Auto 600 /uL (0-900); Monocytes Percent Auto 9.8 % (3-14); Neutrophils Absolute Auto 3200 /uL (1500-7000); Neutrophils Percent Auto 56.7 % (50-75); Platelet Count 119 X10^3/uL (150-400); Red Blood Cell Count 4.55 X10^6/uL (4.5-5.9); Red Cell Distribution Width 13.4 % (11.6-14.8); White Blood Cell Count 5.6 X10^3/uL (4.5-11.0)
[2020-04-23 11:02] LABS: Alanine Aminotransferase 19 IU/L (<50); Albumin Globulin Ratio 1.5 (1.0-2.8); Alkaline Phosphatase 72 U/L (38-126); Aspartate Aminotransferase 32 IU/L (17-59); BUN Creatinine Ratio 15.1 (6-22); Bilirubin Total 1.1 mg/dL (0.2-1.3); Blood Urea Nitrogen 13 mg/dL (9-20); Calcium 9.7 mg/dL (8.4-10.2); Carbon Dioxide 30 mmol/L (22-32); Chloride 106 mmol/L (98-107); Cholesterol 171 mg/dL (140-199); Estimated Glomerular Filt Rate > 60.0 mL/min (>60); Globulin 2.6 g/dL (1.7-4.1); Glucose 93 mg/dL (80-110); HDL Cholesterol 50 mg/dL (40-60); HEMOLYSIS < 15 (0-50); LDL Cholesterol Calculated 105 mg/dL (<100); Potassium 5.3 mmol/L (3.4-5.1); Sodium 139 mmol/L (137-145); Total Protein 6.6 g/dL (6.3-8.2); Triglycerides 81 mg/dL (35-150)
[2020-04-23 11:28] LABS: Prostate Specific Antigen Scrn 1.13 ng/mL (0.1-4.0)
== END ==
PROVIDERS: Family Provider Family Medicine; PCP Family Medicine; Referring Provider Family Medicine; Visit Provider Family Medicine
DX: E78.5 Hyperlipidemia, unspecified (principal); Z12.5 Encounter for screening for malignant neoplasm of prostate; I49.9 Cardiac arrhythmia, unspecified
CPT/HCPCS: 36415; 80053; 80061; 85025; G0103

== ENCOUNTER → 2020-05-28 08:08 | Outpatient (CLI) | payer MEDICARE, OTHER, SELFPAY ==
[2020-05-04 12:56] VITALS: BMI 24.3
--- NOTE | 2020-05-28 | DI.RAD.S_ITS ---
PROCEDURE: FL SHOULDER INJECTION MR/CT LT INDICATIONS: Left shoulder pain, unspecified chronicity COMPARISON: None. TECHNIQUE: The indications, alternatives, benefits, risks, and complications of the procedure were explained to the patient. Written informed consent was obtained and placed in the chart. The shoulder was examined fluoroscopically and a site for needle placement chosen for entry into the glenohumeral joint from an anterior approach. The skin was prepped and draped in a sterile fashion, and 1% lidocaine infiltrated from skin down to joint capsule. A spinal needle was inserted into the glenohumeral joint, and a small amount of iodinated contrast media injected to confirm intra-articular placement of the needle tip. This was followed by approximately 12 mL dilute solution of a gadolinium containing MR contrast agent. The needle was removed and a dressing was applied. The patient was given postprocedural instructions and sent to the MR suite for MR imaging. FINDINGS: A single fluoroscopic spot image demonstrates intra-articular location of injected iodinated contrast. IMPRESSION: Successful fluoroscopically guided administration of dilute Gadolinium solution into the shoulder joint for MR arthrogram. Dictated by: Andrew Graf M.D. on 05/28/2020 at 10:34 Approved by: Andrew Graf M.D. on 05/28/2020 at 10:35
--- NOTE | 2020-05-28 | DI.MRI.S_ITS ---
PROCEDURE: MR SHOULDER LT W CON INDICATIONS: Left shoulder pain, unspecified chronicity TECHNIQUE: After the administration of 12 mL of dilute intra-articular Gadolinium contrast, oblique coronal T1 and T2 spin echo with fat saturation, oblique sagittal T1 spin echo with and without fat saturation, oblique sagittal T2 fast spin echo with fat saturation, axial T1 spin echo with fat saturation through the shoulder. COMPARISON: [facility], MR, MR SHOULDER LT WO CON, 01/06/2019, 15:49. FINDINGS: Image quality: Mildly suboptimal secondary to scattered postsurgical micro metallic susceptibility artifact Rotator cuff: Supraspinatus tendinopathy, with low-grade bursal and articular surface fraying. No full-thickness tear identified. There is also interstitial tearing and tendinopathy involving the infraspinatus muscle. At the junction of the supraspinatus and infraspinatus muscle, there is interstitial tearing, and low-grade bursal sided tear. Teres minor appears intact. Subscapularis tendinopathy. No definite rotator cuff muscle atrophy. Mild fatty infiltration of the infraspinatus muscle. Bones and bursae: No bone marrow contusions or fractures. Moderate acromioclavicular joint degeneration. Acromion demonstrates conventional anatomy, without an os acromiale. No definite subacromial-subdeltoid bursitis. Capsule and soft tissues: Labrum: Irregularity mild hypertrophy of the anterior labrum, with intermediate intrasubstance signal change. This suggests chronic anterior labral tear and/or postsurgical sequela, superimposed degeneration. Blunted appearance of the superior labrum which could also represent postsurgical sequela versus ill-defined tear. Long head of the biceps tendon not seen and this could be due to prior surgery/rupture. Distally, below the intertubercular groove, there is tendinopathy, thickening and intrasubstance signal change for example image 17/5. The rotator interval appears normal, without fibrosis. Coracohumeral ligament intact. IMPRESSION: Supraspinatus tendinopathy with low-grade bursal and articular surface fraying. This appears progressed since the prior study Tendinopathy and interstitial tearing to the musculotendinous junction involving the infraspinatus muscle. This is also progressed since the prior study Interstitial tearing and low-grade bursal sided tear of the junction of the supraspinatus and infraspinatus muscle. This finding appears new Chronic appearing anterior and superior labral tear versus postsurgical sequela. Superimposed degenerative changes are likely present, which appears slightly more consolidated and less conspicuous since the prior study Intra-articular segment of the long head biceps tendon not seen due to prior surgery/rupture, since the prior study Dictated by: Andrew Graf M.D. on 05/28/2020 at 10:22 Approved by: Andrew Graf M.D. on 05/28/2020 at 10:34
== END ==
PROVIDERS: Family Provider Family Medicine; PCP Family Medicine; Referring Provider Family Medicine; Visit Provider Orthopaedic Surgery
DX: M25.512 Pain in left shoulder (principal)
CPT/HCPCS: 23350; 73222; 77002

== ENCOUNTER → 2021-05-16 08:04 | Outpatient (CLI) | payer MEDICARE, OTHER, SELFPAY ==
[2020-05-04 12:56] VITALS: BMI 24.3
--- NOTE | 2021-05-16 08:05 | DI.US.S_ITS ---
PROCEDURE: US SCROTUM INDICATIONS: LEFT SCROTAL PAIN TECHNIQUE: Real-time scanning was performed of the scrotum and testicles, with image documentation. Color and pulse Doppler interrogation was performed of both testicles. COMPARISON: None. FINDINGS: Right: Testicle is normal in size at 4.4 x 3.1 x 2 cm, and homogenous in echotexture. Epididymis is normal in overall size and morphology. No hydrocele or varicoceles. Overlying scrotal skin is normal in thickness. Left: Testicle is normal in size at 4.3 x 2.9 x 2.1 cm, and homogeneous in echotexture. Epididymis is normal in overall size and morphology. No hydrocele or varicoceles. Overlying scrotal skin is normal in thickness. Doppler: Color and pulse Doppler demonstrate normal and symmetric arterial flow in both testicles. IMPRESSION: 1. No testicular torsion or No epididymoorchitis demonstrated. 2. No testicular mass. 3. No hydrocele or varicocele. Dictated by: Prakash Martinez M.D. on 05/16/2021 at 9:20 Approved by: Prakash Martinez M.D. on 05/16/2021 at 9:23
== END ==
PROVIDERS: Family Provider Family Medicine; PCP Family Medicine; Referring Provider Physician Assistant; Visit Provider Physician Assistant
DX: N50.812 Left testicular pain (principal)
CPT/HCPCS: 76870

== ENCOUNTER → 2021-05-16 08:57 | Outpatient (CLI) | payer MEDICARE, OTHER, SELFPAY ==
[2020-05-04 12:56] VITALS: BMI 24.3
[2021-05-16 09:47] LABS: Add Manual Diff / Slide Review NO; Basophils Absolute Auto 0 /uL (0-100); Basophils Percent Auto 0.4 % (0-2); Eosinophils Absolute Auto 100 /uL (0-450); Eosinophils Percent Auto 0.9 % (2-4); Hematocrit 44.5 % (41-53); Hemoglobin 14.9 g/dL (13.5-17.5); Lymphocytes Absolute Auto 1600 /uL (1100-4500); Lymphocytes Percent Auto 24.1 % (25-40); Mean Corpuscular HGB Conc 33.4 % (30-36); Mean Corpuscular Hemoglobin 31.9 PG (26-34); Mean Corpuscular Volume 95.4 fL (80-100); Monocytes Absolute Auto 600 /uL (0-900); Monocytes Percent Auto 8.8 % (3-14); Neutrophils Absolute Auto 4300 /uL (1500-7000); Neutrophils Percent Auto 65.8 % (50-75); Platelet Count 130 X10^3/uL (150-400); Red Blood Cell Count 4.66 X10^6/uL (4.5-5.9); Red Cell Distribution Width 13.9 % (11.6-14.8); White Blood Cell Count 6.5 X10^3/uL (4.5-11.0)
[2021-05-16 10:10] LABS: Alanine Aminotransferase 17 IU/L (<50); Albumin 4.1 g/dL (3.5-5.0); Albumin Globulin Ratio 1.6 (1.0-2.8); Alkaline Phosphatase 69 U/L (38-126); Aspartate Aminotransferase 26 IU/L (17-59); BUN Creatinine Ratio 16.8 (6-22); Bilirubin Total 0.6 mg/dL (0.2-1.3); Blood Urea Nitrogen 17 mg/dL (9-20); Calcium 9.7 mg/dL (8.4-10.2); Carbon Dioxide 30 mmol/L (22-32); Chloride 107 mmol/L (98-107); Cholesterol 193 mg/dL (140-199); Estimated Glomerular Filt Rate > 60.0 mL/min (>60); Globulin 2.6 g/dL (1.7-4.1); Glucose 96 mg/dL (80-110); HDL Cholesterol 54 mg/dL (40-60); HEMOLYSIS < 15 (0-50); LDL Cholesterol Calculated 111 mg/dL (<100); Potassium 4.7 mmol/L (3.4-5.1); Sodium 140 mmol/L (137-145); Total Protein 6.7 g/dL (6.3-8.2); Triglycerides 139 mg/dL (35-150)
[2021-05-16 10:39] LABS: Prostate Specific Antigen Scrn 1.15 ng/mL (0.1-4.0)
== END ==
PROVIDERS: Family Provider Family Medicine; PCP Family Medicine; Referring Provider Family Medicine; Visit Provider Family Medicine
DX: E78.5 Hyperlipidemia, unspecified (principal); Z12.5 Encounter for screening for malignant neoplasm of prostate
CPT/HCPCS: 36415; 80053; 80061; 85025; G0103

== ENCOUNTER 2021-05-24 10:44 | Emergency (ER) | payer MEDICARE, OTHER, SELFPAY ==
[2020-05-04 12:56] VITALS: BMI 24.3
[2021-05-24 11:03] VITALS: BP 131/80; PULSE 64; RESP 18; TEMP 37.1; O2SAT 98; BMI 24.0
[2021-05-24 11:56] LABS: Add Manual Diff / Slide Review NO; Basophils Absolute Auto 0 /uL (0-100); Basophils Percent Auto 0.5 % (0-2); Eosinophils Absolute Auto 0 /uL (0-450); Eosinophils Percent Auto 0.7 % (2-4); Hematocrit 43.2 % (41-53); Hemoglobin 14.5 g/dL (13.5-17.5); Lymphocytes Absolute Auto 1500 /uL (1100-4500); Lymphocytes Percent Auto 24.7 % (25-40); Mean Corpuscular HGB Conc 33.6 % (30-36); Mean Corpuscular Hemoglobin 31.8 PG (26-34); Mean Corpuscular Volume 94.6 fL (80-100); Monocytes Absolute Auto 600 /uL (0-900); Monocytes Percent Auto 9.1 % (3-14); Neutrophils Absolute Auto 4000 /uL (1500-7000); Platelet Count 109 X10^3/uL (150-400); Red Blood Cell Count 4.56 X10^6/uL (4.5-5.9); White Blood Cell Count 6.1 X10^3/uL (4.5-11.0)
[2021-05-24 12:13] LABS: Alanine Aminotransferase 16 IU/L (<50); Albumin 4.2 g/dL (3.5-5.0); Albumin Globulin Ratio 1.6 (1.0-2.8); Alkaline Phosphatase 66 U/L (38-126); Aspartate Aminotransferase 29 IU/L (17-59); BUN Creatinine Ratio 21.4 (6-22); Bilirubin Total 0.7 mg/dL (0.2-1.3); Blood Urea Nitrogen 18 mg/dL (9-20); Calcium 9.3 mg/dL (8.4-10.2); Carbon Dioxide 27 mmol/L (22-32); Chloride 109 mmol/L (98-107); Estimated Glomerular Filt Rate > 60.0 mL/min (>60); Globulin 2.7 g/dL (1.7-4.1); Glucose 93 mg/dL (80-110); HEMOLYSIS < 15 (0-50); Lipase 58 U/L (23-300); Potassium 4.1 mmol/L (3.4-5.1); Sodium 141 mmol/L (137-145); Total Protein 6.9 g/dL (6.3-8.2)
[2021-05-24 13:08] VITALS: BP 150/70; PULSE 57; O2SAT 98
--- NOTE | 2021-05-24 13:31 | DI.CT.S_ITS ---
PROCEDURE: CT ABDOMEN PELVIS W CON INDICATIONS: lower abd pain. IV contast only TECHNIQUE: After the administration of intravenous contrast, axial sections acquired from the lung bases to the pubic symphysis. Coronal and sagittal reformats were performed. For radiation dose reduction, the following was used: automated exposure control, adjustment of mA and/or kV according to patient size. COMPARISON: [facility], CT, ABDOMEN/PELVIS WITH CONTRAST, 10/01/2015, 10:05. FINDINGS: Image quality: Excellent. Lung bases: Unremarkable. Heart: No significant findings. ABDOMEN: Liver: Unremarkable. Gallbladder: Unremarkable. Biliary ducts: Unremarkable. Pancreas: Unremarkable. Spleen: Unremarkable. Adrenal Glands: Unremarkable. Kidneys and Ureters: Unremarkable. Stomach and Bowel: Small hiatal hernia. Stomach and small bowel loops are unremarkable. Mild sigmoid diverticulosis without evidence of diverticulitis. Peritoneum: No abnormal intraperitoneal fluid. No free air. Ventral Wall: No hernias. Abdominal Nodes: No retroperitoneal or mesenteric adenopathy by size criteria. Vessels: The abdominal aorta is normal in caliber with mild thrombus. There is borderline aneurysmal dilatation of the right common iliac artery with [id number] thrombus, not flow limiting. PELVIS: Pelvic Organs: Unremarkable. Bladder: Mild diffuse bladder wall thickening. Enlarged prostate. Bladder is nondistended. Pelvic Nodes: No enlarged lymph nodes. Miscellaneous: Small left inguinal hernia containing fat. Bones: Mild lumbar degenerative change. No lytic or blastic bony lesions. IMPRESSION: 1. Sigmoid diverticulosis. 2. Mild diffuse bladder wall thickening suggest possible cystitis versus bladder outlet obstruction secondary to an enlarged prostate. 3. Mild aneurysmal dilatation of the right common iliac artery with [id number] thrombus. 4. Diverticulosis without evidence of diverticulitis. 5. Small hiatal hernia. Dictated by: Dorian Clinton M.D. on 05/24/2021 at 14:49 Approved by: Dorian Clinton M.D. on 05/24/2021 at 14:55
[2021-05-24 15:05] VITALS: BP 127/72; PULSE 62; RESP 16; O2SAT 99
--- NOTE | 2021-05-24 15:31 | ED.GENADULT ---
HPI - General Adult General Chief complaint: Abdominal Pain Stated complaint: Lower right abd pain Time Seen by Provider: 05/24/21 13:53 Source: patient Mode of arrival: Ambulatory Related Data Home Medications Medication Instructions Recorded Confirmed atorvastatin 10 mg tablet 10 mg PO QAM 05/24/21 Allergies Allergy/AdvReac Type Severity Reaction Status Date / Time No Known Drug Allergies Allergy Unknown Verified 05/24/21 11:07 Patient History Medical History (Updated 05/24/21 @ 16:40 by Soniya Wheeler MD) Cardiac arrhythmia (10/19/14) Chest pain Chronic back pain (2003) Chronic cough Chronic headaches (2010) GERD (gastroesophageal reflux disease) Herpes (1976) Hiatal hernia Hyperlipidemia Other and unspecified hyperlipidemia (04/02/11) Shoulder pain, left Testicular pain, left Testicular/scrotal pain Surgical History Anesthesia History of right knee surgery History of shoulder surgery (2006) History of shoulder surgery (2006) Status post hernia repair (2012) Family History Father Cancer Lung cancer Mother Cancer Brother No problems noted. Social History household members: significant other Smoking Status: Never smoker Smoking Status: Never smoker alcohol intake frequency: a few times a week Alcohol type: beer Substance Use Type: does not use Exam Initial Vital Signs Initial Vital Signs: Vital Signs Temperature 98.7 F 05/24/21 11:03 Pulse Rate 64 05/24/21 11:03 Respiratory Rate 18 05/24/21 11:03 Blood Pressure 131/80 05/24/21 11:03 Pulse Oximetry 98 05/24/21 11:03 Course Orders Ordered: ED Orders 05/24/21 11:08 EKG-12 Lead Stat 05/24/21 11:48 Complete Blood Count AUTO DIFF Stat Comprehensive Metabolic Panel Stat Lipase Stat 05/24/21 13:31 CT abdomen pelvis w con Stat Vital Signs Vital signs: Vital Signs - 8 hr 05/24/21 11:03 05/24/21 13:08 05/24/21 15:05 Temperature 98.7 F Pulse Rate 64 57 L 62 Respiratory Rate 18 16 Blood Pressure 131/80 150/70 H 127/72 Pulse Oximetry 98 98 99 Medical Decision Making Lab Data Result diagrams: 05/24/21 11:48 05/24/21 11:48 Labs: Lab Results 05/24/21 05/24/21 Range/Units 11:48 11:48 WBC 6.1 (4.5-11.0) X10^3/uL RBC 4.56 (4.5-5.9) X10^6/uL Hgb 14.5 (13.5-17.5) g/dL Hct 43.2 (41-53) % MCV 94.6 (80-100) fL MCH 31.8 (26-34) PG MCHC 33.6 (30-36) % RDW 14.0 (11.6-14.8) % Plt Count 109 L (150-400) X10^3/uL Neut % (Auto) 65.0 (50-75) % Lymph % (Auto) 24.7 L (25-40) % Villalba % (Auto) 9.1 (3-14) % Eos % (Auto) 0.7 L (2-4) % Baso % (Auto) 0.5 (0-2) % Neut # (Auto) 4000 (1581-6351) /uL Lymph # (Auto) 1500 (8094-3343) /uL Villalba # (Auto) 600 (0-900) /uL Eos # (Auto) 0 (0-450) /uL Baso # (Auto) 0 (0-100) /uL Sodium 141 (137-145) mmol/L Potassium 4.1 (3.4-5.1) mmol/L Chloride 109 H (98-107) mmol/L Carbon Dioxide 27 (22-32) mmol/L BUN 18 (9-20) mg/dL Creatinine 0.84 (0.66-1.25) mg/dL Estimated GFR > 60.0 (>60) mL/min BUN/Creatinine Ratio 21.4 (6-22) Glucose 93 (80-110) mg/dL Calcium 9.3 (8.4-10.2) mg/dL Total Bilirubin 0.7 (0.2-1.3) mg/dL AST 29 (17-59) IU/L ALT 16 (<50) IU/L Alkaline Phosphatase 66 (38-126) U/L Total Protein 6.9 (6.3-8.2) g/dL Albumin 4.2 (3.5-5.0) g/dL Globulin 2.7 (1.7-4.1) g/dL Albumin/Globulin Ratio 1.6 (1.0-2.8) Lipase 58 (23-300) U/L Urine Dip Bedside Urine Glucose Negative Bedside Urine Bilirubin - Negative Bedside Urine Ketone - Negative Urine Specific Mccall 1.030 Bedside Urine Occult Blood - Negative Bedside Urine pH 6.0 Bedside Urine Protein - Negative Bedside Urine Urobilinogen - Negative Bedside Urine Nitrite - Negative Bedside Urine Leukocytes - Negative Esterase Point of care testing: Urine Dip Bedside Urine Glucose Negative Bedside Urine Bilirubin - Negative Bedside Urine Ketone - Negative Urine Specific Mccall 1.030 Bedside Urine Occult Blood - Negative Bedside Urine pH 6.0 Bedside Urine Protein - Negative Bedside Urine Urobilinogen - Negative Bedside Urine Nitrite - Negative Bedside Urine Leukocytes - Negative Esterase Imaging Data CT scan - abdomen/pelvis: Radiologist's Impression: FINDINGS:? Image quality:? Excellent.? ? Lung bases:? Unremarkable. Heart:? No significant findings. ? ABDOMEN: Liver:? Unremarkable.? ? Gallbladder:? Unremarkable.? ? Biliary ducts:? Unremarkable.? ? Pancreas:? Unremarkable.? ? Spleen:? Unremarkable.? ? Adrenal Glands:? Unremarkable.? ? Kidneys and Ureters:? Unremarkable.? ? ? Stomach and Bowel:? Small hiatal hernia.? Stomach and small bowel loops are unremarkable. ?Mild sigmoid diverticulosis without evidence of diverticulitis. Peritoneum:? No abnormal intraperitoneal fluid.? No free air.? ? Ventral Wall: ? No hernias.? Abdominal Nodes:? No retroperitoneal or mesenteric adenopathy by size criteria.? Vessels:? The abdominal aorta is normal in caliber with mild thrombus.? There is borderline aneurysmal dilatation of the right common iliac artery with [id number] thrombus, not flow limiting. ? PELVIS: Pelvic Organs:? Unremarkable.? ? Bladder:? Mild diffuse bladder wall thickening.? Enlarged prostate.? Bladder is nondistended.? Pelvic Nodes: No enlarged lymph nodes.? Miscellaneous:? Small left inguinal hernia containing fat. ? Bones:? Mild lumbar degenerative change.? No lytic or blastic bony lesions. ? ? IMPRESSION:? ? 1. Sigmoid diverticulosis. ? 2. Mild diffuse bladder wall thickening suggest possible cystitis versus bladder outlet obstruction secondary to an enlarged prostate.? ? 3. Mild aneurysmal dilatation of the right common iliac artery with [id number] thrombus. ? 4. Diverticulosis without evidence of diverticulitis.? ? 5. Small hiatal hernia.? ? Dictated by: Dorian Clinton M.D. on 05/24/2021 at 14:49 ? ? MDM Narrative Medical decision making narrative: CT scan is reviewed with Dr. Leon. The mild moderate thrombus with in the mild aneurysmal dilatation of the right common iliac artery is likely a more chronic finding. It certainly is not limiting blood flow. He has no other clinical signs or sequelae of additional clot. No DVTs and no PEs. No stroke-like symptoms. Findings are reviewed with him. In light of his testicular pain lower pelvic pain the mild bladder wall thickening on the CT scan I believe the urology consult is going to be the next step in figuring out what is causing his discomfort. He is noting some mild bladder outlet obstruction symptoms but not complaining of acute urinary retention issues at any time. Findings are reviewed with him and he will schedule appointment with 1 of our urologists with next available appointments. He has worsening symptoms in certainly return to the emergency department. Discharge Plan Departure Patient Disposition: Home Clinical Impression: Acute pelvic pain, Bladder wall thickening, Right testicular pain, Aneurysmal dilatation Activity Restrictions/Additional Instructions: Thank you for coming in today I do not have a complete explanation for the lower pelvic pain and the right testicular pain. I do know, that you do not have appendicitis, colitis or an acute abdominal infection Your bladder wall is somewhat thickened and that may be contributing to the deep pelvic floor pain that you are experiencing. You have a small aneurysm, a ballooning of the vessel, in your right iliac artery and that little balloon has a small bit of clot in it. The clot is not hindering flow in any way. You do not have a twisted testicle, epididymitis or evidence of prostatitis. I would like you to see 1 of our urologists to do a more thorough exam to see if they may have a better explanation and some options for symptomatic relief. Please call Dr. Morales, urologist his office #[phone] to schedule an appointment. In the meantime, with this small clot in the inguinal artery I would recommend a baby aspirin daily. If your symptoms are worsening, please return to the ER Prescriptions: No Action atorvastatin 10 mg tablet 10 mg PO QAM 0RF Referrals: Shanae Morales MD [Physician] - Jose Solis DO [Primary Care Provider] -
== END 2021-05-24 17:02 | disposition home or self-care (01) ==
PROVIDERS: Emergency Provider Emergency Medicine; Family Provider Family Medicine; PCP Family Medicine
DX: R10.2 Pelvic and perineal pain (principal); N50.811 Right testicular pain; I72.3 Aneurysm of iliac artery; R03.0 Elevated blood-pressure reading, without diagnosis of hypertension
CPT/HCPCS: 36415; 74177; 80053; 81003; 83690; 85025; 93005; 93010; 99284; Q9967

== ENCOUNTER → 2022-11-03 08:35 | Outpatient (CLI) | payer MEDICARE, OTHER, SELFPAY ==
[2020-05-04 12:56] VITALS: BMI 24.3
[2022-11-03 09:41] LABS: Add Manual Diff / Slide Review NO; Basophils Absolute Auto 0 /uL (0-100); Basophils Percent Auto 0.5 % (0-2); Eosinophils Absolute Auto 100 /uL (0-450); Eosinophils Percent Auto 1.6 % (2-4); Hemoglobin 14.4 g/dL (13.5-17.5); Lymphocytes Absolute Auto 1900 /uL (1100-4500); Lymphocytes Percent Auto 30.3 % (25-40); Mean Corpuscular HGB Conc 34.3 % (30-36); Mean Corpuscular Volume 93.3 fL (80-100); Monocytes Absolute Auto 600 /uL (0-900); Monocytes Percent Auto 9.4 % (3-14); Neutrophils Absolute Auto 3600 /uL (1500-7000); Neutrophils Percent Auto 58.2 % (50-75); Platelet Count 126 X10^3/uL (150-400); Red Cell Distribution Width 13.5 % (11.6-14.8); White Blood Cell Count 6.1 X10^3/uL (4.5-11.0)
[2022-11-03 10:37] LABS: BUN Creatinine Ratio 18.9 (6-22); Blood Urea Nitrogen 18 mg/dL (9-20); Calcium 8.9 mg/dL (8.4-10.2); Carbon Dioxide 28 mmol/L (22-32); Chloride 106 mmol/L (98-107); Cholesterol 166 mg/dL (140-199); Estimated Glomerular Filt Rate > 60 mL/min (>60); Glucose 85 mg/dL (80-110); HDL Cholesterol 49 mg/dL (40-60); HEMOLYSIS < 15 (0-50); LDL Cholesterol Calculated 100 mg/dL (<100); Potassium 4.6 mmol/L (3.4-5.1); Sodium 140 mmol/L (137-145); Triglycerides 83 mg/dL (35-150)
== END ==
PROVIDERS: Family Provider Family Medicine; PCP Family Medicine; Referring Provider Family Medicine; Visit Provider Family Medicine
DX: E78.5 Hyperlipidemia, unspecified (principal)
CPT/HCPCS: 36415; 80048; 80061; 85025

== ENCOUNTER → 2023-03-22 13:13 | Outpatient (CLI) | payer MEDICARE, OTHER, SELFPAY ==
[2020-05-04 12:56] VITALS: BMI 24.3
[2023-03-22 14:53] LABS: Prostate Specific Antigen 1.34 ng/mL (0.10-4.00)
== END ==
PROVIDERS: Family Provider Family Medicine; PCP Family Medicine; Referring Provider Family Medicine; Visit Provider Family Medicine
DX: R39.9 Unspecified symptoms and signs involving the genitourinary system (principal); Z80.42 Family history of malignant neoplasm of prostate; Z12.5 Encounter for screening for malignant neoplasm of prostate
CPT/HCPCS: 36415; 84153; G0103

== ENCOUNTER → 2024-01-10 08:42 | Outpatient (CLI) | payer MEDICARE, OTHER, SELFPAY ==
[2024-01-10 07:13] VITALS: BMI 24.3
--- NOTE | 2024-01-10 08:45 | DI.RAD.S_ITS ---
PROCEDURE: XR FINGER RT MIN 2V INDICATIONS: thumb MCP swelling/pain/tingling TECHNIQUE: AP hand, 2 views of the 1st finger(s) acquired. COMPARISON: None. FINDINGS: Bones: No acute fractures or dislocations. Mild 1st CMC joint space narrowing and tiny juxta-articular osteophytosis. Tiny ossific density adjacent to the ulnar styloid may reflect sequela of remote injury versus accessory ossicle. No suspicious bony lesions. No osseous erosions or, osteolysis or periosteal reaction. Soft tissues: No suspicious soft tissue calcifications. IMPRESSION: 1. No acute bony abnormality. If clinical symptoms persist, consider repeat radiograph in 10-14 days versus cross-sectional imaging. 2. Mild 1st CMC joint osteoarthritis. Dictated by: Rosana Bucio M.D. on 01/10/2024 at 9:09 Approved by: Rosana Bucio M.D. on 01/10/2024 at 9:12
== END ==
PROVIDERS: Family Provider Family Medicine; PCP Family Medicine; Referring Provider Student in an Organized Health Care Education/Training Program; Visit Provider Student in an Organized Health Care Education/Training Program
DX: M18.11 Unilateral primary osteoarthritis of first carpometacarpal joint, right hand (principal); M25.441 Effusion, right hand
CPT/HCPCS: 73140

== ENCOUNTER → 2024-05-09 14:44 | Outpatient (CLI) | payer MEDICARE, OTHER, SELFPAY ==
[2024-01-10 07:13] VITALS: BMI 24.3
--- NOTE | 2024-05-09 14:46 | DI.RAD.S_ITS ---
PROCEDURE: XR ELBOW LT MIN 3V INDICATIONS: point tender prox ulna fall 7 D QUALITY AUDIT REPRESENTATIVE; ROM/strength intact TECHNIQUE: 3 views of the elbow were acquired. COMPARISON: None. FINDINGS: Bones: No fractures or dislocations. No suspicious bony lesions. Soft tissues: Slight elbow joint effusion. No suspicious soft tissue calcifications. IMPRESSION: No osseous trauma found. Slight pleural effusion elevating the anterior fat pad on the lateral view. If hidden fracture is clinically suspected follow-up by elbow MRI could be obtained which also would accurately detect ligamentous injury. Dictated by: Julian Amaya M.D. on 05/09/2024 at 15:06 Approved by: Julian Amaya M.D. on 05/09/2024 at 15:08
== END ==
LOC: RAD 14:45
PROVIDERS: Family Provider Family Medicine; PCP Family Medicine; Referring Provider Student in an Organized Health Care Education/Training Program; Visit Provider Student in an Organized Health Care Education/Training Program
DX: S56.912A Strain of unspecified muscles, fascia and tendons at forearm level, left arm, initial encounter (principal); S53.402A Unspecified sprain of left elbow, initial encounter; W19.XXXA Unspecified fall, initial encounter
CPT/HCPCS: 73080

== ENCOUNTER 2024-06-01 16:50 | Observation (INO) | payer MEDICARE, OTHER, SELFPAY ==
[2024-01-10 07:13] VITALS: BMI 24.3
[2024-06-01 16:55] VITALS: BP 132/69; PULSE 57; RESP 16; TEMP 36.9; O2SAT 99; BMI 24.3
--- NOTE | 2024-06-01 17:15 | DI.RAD.S_ITS ---
PROCEDURE: XR HAND LT MIN 3V INDICATIONS: left hand, middle finger amputation TECHNIQUE: 3 views of the hand(s) acquired. An additional lateral view of the 3rd finger was acquired. COMPARISON: [facility], , XR HAND RT MIN 3V, 07/28/2019, 9:21. FINDINGS: Bones: At the tension change can be seen involving the 3rd finger distally, at the level of the proximal aspect of the distal phalanx. Soft tissues: Associated soft tissue injury is seen. IMPRESSION: Third finger of intention can be seen at the level of the proximal aspect of the distal phalanx. Dictated by: Aldo Pacheco M.D. on 06/01/2024 at 16:39 Approved by: Aldo Pacheco M.D. on 06/01/2024 at 16:40
--- NOTE | 2024-06-01 18:21 | ED.WOUNDLAC ---
HPI - Wound/Laceration General Chief Complaint: Wound/Laceration Stated Complaint: cut tip of finger off on lt hand, middle Time Seen by Provider: 06/01/24 17:43 Source: patient Mode of arrival: Family Vehicle History of Present Illness HPI narrative: Patient was a 73-year-old male. Is right-hand dominant who is here for evaluation of a distal left middle finger injury. As he was moving some furniture around he got his finger in between 2 pieces of the furniture. He did amputate the distal portion of the finger. No other injuries from the event. He was up-to-date on his tetanus. Related Data Home Medications Medication Instructions Recorded Confirmed Vitamin C PO 06/16/21 05/09/24 Vitamina D PO 06/16/21 05/09/24 Previous Rx's Medication Instructions Recorded atorvastatin 10 mg tablet See Rx Instructions .Route 11/02/22 .COMPLEX #90 tabs cephalexin 500 mg capsule 500 mg PO TID #20 caps 06/01/24 hydrocodone 5 mg-acetaminophen 325 1 tab PO Q8H PRN pain #10 tabs 06/01/24 mg tablet Allergies Allergy/AdvReac Type Severity Reaction Status Date / Time No Known Drug Allergies Allergy Verified 05/09/24 14:27 Review of Systems Review of Systems ROS Unobtainable: All systems reviewed & are unremarkable except as noted in HPI and below Patient History Medical History Family history of prostate cancer in father Excessive cerumen in right ear canal Lower abdominal pain Testicular pain GERD (gastroesophageal reflux disease) Hiatal hernia Hyperlipidemia Shoulder pain, left Other and unspecified hyperlipidemia (04/02/11) Chest pain Chronic headaches (2010) Herpes (1976) Chronic back pain (2003) Chronic cough Cardiac arrhythmia (10/19/14) Surgical History Anesthesia History of right knee surgery History of shoulder surgery (2006) History of shoulder surgery (2006) Status post hernia repair (2012) Family History Father Cancer Lung cancer Mother Cancer Brother No problems noted. Social History marital status: unmarried,single number of children: 2 household members: significant other Smoking Status: Never smoker alcohol intake: current Smoking Status: Never smoker alcohol intake frequency: a few times a week Alcohol type: beer Exam Initial Vital Signs Initial Vital Signs: Vital Signs Temperature 98.4 F 06/01/24 16:55 Pulse Rate 57 L 06/01/24 16:55 Respiratory Rate 16 06/01/24 16:55 Blood Pressure 132/69 06/01/24 16:55 Pulse Oximetry 99 06/01/24 16:55 Oxygen Delivery Method Room Air 06/01/24 16:55 Const General: cooperative Cardio Pulses: radial pulses present on the left Skin Other: Patient with a complete amputation of the distal portion of the left middle finger. It was distal to the DIPJ joint but does involve the entire nail. Neuro Sensory Exam: no sensory deficits noted Extrem Other: Amputation of distal portion of left middle finger. Procedures Nerve Block Nerve Block 1: Local Anesthetic: lidocaine 1% Amount of anesthesia used (mL): 5 Side: left Nerve Blocks: digital Procedure Successful: Yes Patient Tolerated Procedure: Well Complications: none Course Orders Ordered: ED Orders 06/01/24 17:15 XR hand LT min 3V Stat 06/01/24 18:39 Consult to Orthopedic Surgery Stat Discontinued Medications Bupivacaine HCl (Bupivacaine 0.5% (Pf) 30 Ml Vial) 1 ml INJ INTRA-OP ONE Stop: 06/01/24 20:02 Last Admin: 06/01/24 20:10 Dose: 4 ml Documented By: JAYME Cefazolin Sodium/Dextrose (Ancef) 100 mls @ 200 mls/hr IV NOW ONE Stop: 06/01/24 20:30 Last Admin: 06/01/24 20:10 Dose: 200 mls/hr Documented By: NANETTE Lidocaine HCl (Lidocaine 1% 20 Ml) 20 ml INJ INTRA-OP ONE Stop: 06/01/24 17:59 Last Admin: 06/01/24 18:50 Dose: 20 ml Documented By: Vital Signs Vital signs: Vital Signs - 8 hr 06/01/24 16:55 Temperature 98.4 F Pulse Rate 57 L Respiratory Rate 16 Blood Pressure 132/69 Pulse Oximetry 99 Oxygen Delivery Method Room Air MDM - Wound/Laceration Imaging Data Extremity x-ray #1: Radiologist's Impression: PROCEDURE: XR HAND LT MIN 3V INDICATIONS: left hand, middle finger amputation TECHNIQUE: 3 views of the hand(s) acquired. An additional lateral view of the 3rd finger was acquired. COMPARISON: [facility], CR, XR HAND RT MIN 3V, 07/28/2019, 9:21. FINDINGS: Bones: At the tension change can be seen involving the 3rd finger distally, at the level of the proximal aspect of the distal phalanx. Soft tissues: Associated soft tissue injury is seen. IMPRESSION: Third finger of intention can be seen at the level of the proximal aspect of the distal phalanx. MDM Narrative Medical decision making narrative: Patient was up-to-date on his tetanus. The wound was extensively irrigated. I did discuss the case with Dr. Chapman on-call for Orthopedic surgery who evaluated the patient in the emergency department and took the patient to the operating room for a completion amputation and closure of the wound. Discharge Plan Departure Patient Disposition: Admitted to Surgery Clinical Impression: Traumatic amputation of fingertip Admit Date/Time: 06/01/24 19:26 Admit Provider: Nathalie Chapman
[2024-06-01] MEDS: LIDOCAINE 1% 20 ML INJ (18:50)
--- NOTE | 2024-06-01 19:52 | P.HP_ITS ---
History of Present Illness History of Present Illness Date Patient Seen: 06/01/24 Time Patient Seen: 19:52 Date of Onset of Symptoms: 06/01/24 Chief complaint: cut tip of finger off on lt hand, middle Narrative: This is a pleasant 73-year-old right-hand dominant gentleman who was moving a car with a car [place] when he accidentally caught the tip of his left hand middle finger and it got pinched between the [place] and the car and he lost the tip of his finger. He is right-hand dominant. He did not have problems with his hand prior to the injury. He did bring the tip with him. [facility] Medical History Family history of prostate cancer in father Excessive cerumen in right ear canal Lower abdominal pain Testicular pain GERD (gastroesophageal reflux disease) Hiatal hernia Hyperlipidemia Shoulder pain, left Other and unspecified hyperlipidemia (04/02/11) Chest pain Chronic headaches (2010) Herpes (1976) Chronic back pain (2003) Chronic cough Cardiac arrhythmia (10/19/14) Surgical History Anesthesia History of right knee surgery History of shoulder surgery (2006) History of shoulder surgery (2006) Status post hernia repair (2012) Family History Father Cancer Lung cancer Mother Cancer Brother No problems noted. Social History marital status: unmarried,single number of children: 2 household members: significant other Smoking Status: Never smoker alcohol intake: current Meds Home Medications and Allergies Home Medications Medication Instructions Recorded Confirmed Type Vitamin C PO 06/16/21 05/09/24 History Vitamina D PO 06/16/21 05/09/24 History atorvastatin 10 mg tablet See Rx Instructions .Route 11/02/22 05/09/24 Rx .COMPLEX #90 tabs Allergies Allergy/AdvReac Type Severity Reaction Status Date / Time No Known Drug Allergies Allergy Verified 05/09/24 14:27 Review of Systems Review of Systems Narrative: He notes he has otherwise been healthy, no recent respiratory or pulmonary problems, he did not have chest pain and was not lightheaded or dizzy prior to his injury Exam Vital Signs (past 8 hours): - 06/01/24 16:55 Temperature 98.4 F Pulse Rate 57 L Respiratory Rate 16 Blood Pressure 132/69 Pulse Oximetry 99 Oxygen Delivery Method Room Air Oxygen Delivery Method Room Air Narrative Exam Narrative: HEENT is benign, lungs are clear, cor regular rate and rhythm, abdomen soft and benign, examination of his left upper extremity shows an amputation of the tip of the middle finger there is exposed distal phalanx, there is mild residual bone, there was no other injury to the hand, Objective Labs Labs: X-rays show a distal tip amputation with some residual bone at the tip of his middle finger Assessment & Plan Assessment and plan (1) Traumatic amputation of fingertip: Status: Acute Plan I have recommended completion amputation and closure. The procedure options risks benefits and complications were discussed in detail. He lost the distal tip of his finger. I told him I will try and save the length I can and try and get improved coverage of the distal tip of his finger. Time-Based Coding :: [TOTAL MINUTES] spent with patient and on the chart (including review of chart, obtaining history, exam, reviewing outside data, placing orders, documenting exam and treatment plan, and counseling patient) on [DATE].
--- NOTE | 2024-06-01 19:58 | PM.OP.1 ---
Operative Date/Time/Diagnoses Date of procedure: 06/01/24 Time of procedure: 19:58 Pre-op diagnosis: Left middle finger distal tip amputation Post-op diagnosis: same Procedure & Clinicians Procedure: Left middle finger amputation completion and closure Same procedure as scheduled: Yes Indications: This is a 73-year-old gentleman who crushed his left middle finger and lost the tip of the finger on a car [place]. He is brought the operating room for irrigation and debridement and completion amputation and closure. Surgeon: Nathalie Chapman Click Yes if Unassisted: No Anesthesia Type: MAC +/- Operative Notes Findings: Loss of the distal tip of the finger, adequate closure Closure Type: primary Specimen(s): none sent Estimated Blood Loss (mL): 10 Blood products transfused: none Tourniquet time (min): 12 Procedure in detail: Patient was brought to the operating room. The left upper extremity was prepped draped standard sterile fashion. He was given 2 g of IV Ancef. A time-out was performed. He was given a small amount of sedation and a dense digital block was performed with Marcaine without epinephrine. His left upper extremity was prepped and draped in standard sterile fashion. Tourniquet was applied but not elevated. A dense digital block was performed. The soft tissues over the distal phalanx through the amputation were meticulously mobilized. The distal phalanx was carefully shortened removing some of the residual bone and meticulously debriding the soft tissues. The wound was meticulously irrigated with normal saline. The nerves were carefully checked and required minimal shortening. The tissue was carefully reapproximated over the distal tip of the finger. The wound was closed with interrupted chromic and nylon. The wound was dressed sterilely. A splint was placed over the distal tip for protection postoperatively. Complications: none Post-operative Condition: stable Disposition: Acute Care Plan for aftercare: Keep dressing on. Elevate as needed. Follow up in 7-10 days for a wound check.
[2024-06-01] MEDS: BUPIVACAINE 0.5% (PF) 30 ML VIAL INJ (20:10)
[2024-06-01] MEDS: CEFAZOLIN 2 GM/100 ML PREMIX 100 ML IV (20:10)
--- NOTE | 2024-06-01 20:23 | SUR.OPER ---
Supine on padded OR bed, head on pillow,right arm secured on padded arm board at <90 degrees abduction and left arm at 90 degrees on a hand table, legs uncrossed, safety belt at thigh, tape over blanket over lower legs.
[2024-06-01 20:58] VITALS: BP 129/54; PULSE 64; RESP 16; TEMP 36.7; O2SAT 99
== END 2024-06-01 21:14 | disposition home or self-care (01) ==
LOC: ED 19:25 → AC 19:28
PROVIDERS: Admitting Provider Orthopaedic Surgery; Emergency Provider Emergency Medicine; Family Provider Family Medicine; PCP Family Medicine; Referring Provider Emergency Medicine; Visit Provider Orthopaedic Surgery
PROC: (CPT 26951; principal; 2024-06-01 20:45)
DX: S68.613A Complete traumatic transphalangeal amputation of left middle finger, initial encounter (principal); S67.193A Crushing injury of left middle finger, initial encounter; W23.0XXA Caught, crushed, jammed, or pinched between moving objects, initial encounter
CPT/HCPCS: 26951; 36415; 64450; 73130; 99284; G0378; J0690

== ENCOUNTER 2024-06-16 09:45 | Emergency (ER) | payer MEDICARE, OTHER, SELFPAY ==
[2024-01-10 07:13] VITALS: BMI 24.3
[2024-06-16] VITALS (13 sets, daily range): BP systolic 103–131; BP diastolic 57–93; PULSE 47–70; RESP 15–32; TEMP 36.4; O2SAT 97–100; BMI 24.3
--- NOTE | 2024-06-16 09:47 | EKG_ITS ---
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
--- NOTE | 2024-06-16 09:47 | DI.RAD.S_ITS ---
PROCEDURE: XR CHEST 1V INDICATIONS: chest pain TECHNIQUE: One view of the chest was acquired. COMPARISON: [facility], CR, XR CHEST 1V, 05/18/2019, 18:51. FINDINGS: Surgical changes and devices: None. Lungs and pleura: Lungs are clear. No pleural effusions or pneumothorax. Mediastinum: Mediastinal contours appear normal. Heart size is normal. Bones and chest wall: No suspicious bony lesions. Overlying soft tissues appear unremarkable. IMPRESSION: No acute cardiopulmonary abnormality is seen. Dictated by: Dorian Clinton M.D. on 06/16/2024 at 10:20 Approved by: Dorian Clinton M.D. on 06/16/2024 at 10:20
[2024-06-16 10:27] LABS: Add Manual Diff / Slide Review NO; Basophils Absolute Auto 0 /uL (0-100); Basophils Percent Auto 0.6 % (0-2); Eosinophils Absolute Auto 100 /uL (0-450); Eosinophils Percent Auto 1.1 % (2-4); Hematocrit 43.5 % (41-53); Hemoglobin 14.7 g/dL (13.5-17.5); Lymphocytes Absolute Auto 1900 /uL (1100-4500); Lymphocytes Percent Auto 25.7 % (25-40); Mean Corpuscular HGB Conc 33.8 % (30-36); Mean Corpuscular Hemoglobin 32.3 PG (26-34); Mean Corpuscular Volume 95.5 fL (80-100); Monocytes Absolute Auto 600 /uL (0-900); Monocytes Percent Auto 8.2 % (3-14); Neutrophils Absolute Auto 4800 /uL (1500-7000); Neutrophils Percent Auto 64.4 % (50-75); Platelet Count 126 X10^3/uL (150-400); Red Blood Cell Count 4.56 X10^6/uL (4.5-5.9); Red Cell Distribution Width 13.5 % (11.6-14.8); White Blood Cell Count 7.5 X10^3/uL (4.5-11.0)
[2024-06-16 10:30] LABS: Prothrombin Time 11.8 SECONDS (9.4-12.5)
[2024-06-16 10:32] LABS: PTT Partial Thromboplastin Tim 37 SECONDS (25.1-36.5)
[2024-06-16 10:34] LABS: Alanine Aminotransferase 20 IU/L (<50); Albumin 4.3 g/dL (3.5-5.0); Albumin Globulin Ratio 1.6 (1.0-2.8); Alkaline Phosphatase 72 U/L (38-126); Aspartate Aminotransferase 30 IU/L (17-59); BUN Creatinine Ratio 20.4 (6-22); Bilirubin Total 0.9 mg/dL (0.2-1.3); Blood Urea Nitrogen 20 mg/dL (9-20); Calcium 9.3 mg/dL (8.4-10.2); Carbon Dioxide 28 mmol/L (22-32); Chloride 106 mmol/L (98-107); Creatine Kinase 75 U/L (55-170); Estimated Glomerular Filt Rate > 60 mL/min (>60); Globulin 2.7 g/dL (1.7-4.1); Glucose 94 mg/dL (80-110); HEMOLYSIS < 15 (0-50); Lipase 72 U/L (23-300); Potassium 4.4 mmol/L (3.4-5.1); Sodium 138 mmol/L (137-145)
[2024-06-16] MEDS: ASPIRIN 81 MG CHEW TAB 324 MG PO (10:41)
[2024-06-16 10:46] LABS: NT-proBNP (BNP-Adult 18+) 88 pg/mL (<125); Troponin I < 0.012 ng/mL (0.01-0.034)
--- NOTE | 2024-06-16 11:28 | ED_ITS ---
HPI - Chest Pain General Chief Complaint: Chest Pain Stated Complaint: dizziness, chest pain Time Seen by Provider: 06/16/24 11:19 Source: patient Mode of arrival: Ambulatory Limitations: no limitations History of Present Illness HPI narrative: Patient has a 73-year-old male history of hyperlipidemia presenting today with variety of complaints. He reports that he has had some chest discomfort the last couple of days. He says he has had angina but never seen a cardiology no history of coronary artery disease does not take nitroglycerin. He says that yesterday while walking he feels some sharp shooting pains. It did not actually stop him pain last 1-2 seconds and goes away. This morning he reports you had some heaviness. He also was having some dizziness and lightheaded this morning when he stood up he did not pass out. He just had to wait a little bit and then he could start moving. He did not need to sit down. reports that he is a little dizzy sometimes off balance. He reports feeling generalized fatigue and weak over last few not months that has not any worse. He reports significant stress in his life he just salt his house. He was seen here on the when he had a partial finger amputation. Patient also reports that mother had stroke with prior carotid occlusion which is why he is taking atorvastatin. He has an appointment with his PCP on SundayJune 23 Related Data Home Medications Medication Instructions Recorded Confirmed Vitamin C PO 06/16/21 05/09/24 Vitamina D PO 06/16/21 05/09/24 Previous Rx's Medication Instructions Recorded atorvastatin 10 mg tablet See Rx Instructions .Route 11/02/22 .COMPLEX #90 tabs cephalexin 500 mg capsule 500 mg PO TID #20 caps 06/01/24 hydrocodone 5 mg-acetaminophen 325 1 tab PO Q8H PRN pain #10 tabs 06/01/24 mg tablet Allergies Allergy/AdvReac Type Severity Reaction Status Date / Time No Known Drug Allergies Allergy Verified 05/09/24 14:27 Patient History Medical History Family history of prostate cancer in father Excessive cerumen in right ear canal Lower abdominal pain Testicular pain GERD (gastroesophageal reflux disease) Hiatal hernia Hyperlipidemia Shoulder pain, left Other and unspecified hyperlipidemia (04/02/11) Chest pain Chronic headaches (2010) Herpes (1976) Chronic back pain (2003) Chronic cough Cardiac arrhythmia (10/19/14) Surgical History Anesthesia History of right knee surgery History of shoulder surgery (2006) History of shoulder surgery (2006) Status post hernia repair (2012) Family History Father Cancer Lung cancer Mother Cancer Brother No problems noted. Social History marital status: unmarried,single number of children: 2 household members: significant other Smoking Status: Never smoker alcohol intake: current Smoking Status: Never smoker alcohol intake frequency: a few times a week Alcohol type: beer Exam Initial Vital Signs Initial Vital Signs: Vital Signs Temperature 97.6 F 06/16/24 09:53 Pulse Rate 55 L 06/16/24 09:53 Respiratory Rate 20 06/16/24 09:53 Blood Pressure 131/93 H 06/16/24 09:53 Pulse Oximetry 100 06/16/24 09:53 Oxygen Delivery Method Room Air 06/16/24 09:53 GENERAL: Alert well-appearing 73-year-old male and in no acute distress. HEENT: Head atraumatic,EOMI, pupils reactive, face symmetric, moist mucous membranes CARDIOVASCULAR: Regular rate and rhythm without murmurs, rubs or gallops. RESPIRATORY: Breath sounds equal bilaterally, no wheezes rales or rhonchi. ABDOMEN: Soft, nontender. Normoactive bowel sounds all 4 quadrants. No guarding or rebound. EXTREMITIES: Normal range of motion, no clubbing or edema. Neurovascularly intact NEUROLOGICAL: Alert and oriented x4.Normal gait and speech. Cranial nerves II through XII grossly intact. SKIN: Warm, dry, no laceration, no petechiae, no rashes or lesions. Scores HEART Score Heart Score history: Slightly Suspicious Heart Score EKG: Normal Heart Score Age: > or = 65 years old Heart Score risk factors: 1-2 risk factors Heart Score troponin: < or = to normal limit Heart Score Total: 3 NIH Stroke Scale Level of Conciousness: Alert, keenly responsive Ask month/age: Answers both questions correctly. Open/close eyes, close hand: Performs both tasks correctly Best gaze horizontal: Normal Visual bowen: No visual loss Facial palsy: Normal symetrical movement Left arm drift: No drift for full 10 sec Right arm drift: No drift for full 10 sec Left leg drift: No drift for full 5 sec Right leg drift: No drift for full 5 sec Limb ataxia: Absent Sensory on face/arms/legs: Normal, no sensory loss Best language: No aphasia, normal Dysarthria: Normal Extinction or inattention: No abnormality Total NIH Stroke scale score: 0 Course Orders Ordered: ED Orders 06/16/24 09:47 XR chest 1V Stat EKG-12 Lead Stat 06/16/24 10:10 Complete Blood Count AUTO DIFF Stat Comprehensive Metabolic Panel Stat Lipase Stat Magnesium Stat NT-proBNP (BNP-Adult 18+) Stat PTT Partial Thromboplastin Ant Stat Prothrombin Time INR Stat Troponin & CK Cardiac Panel Stat 06/16/24 11:53 EKG-12 Lead Stat 06/16/24 11:55 US carotid doppler BI Stat 06/16/24 12:21 Trop I [Troponin I] Stat Discontinued Medications Aspirin (Aspirin 81 Mg Chew Tab) 324 mg PO NOW ONE Stop: 06/16/24 09:48 Last Admin: 06/16/24 10:41 Dose: 324 mg Documented By: MPO Vital Signs Vital signs: Vital Signs - 8 hr 06/16/24 11:00 06/16/24 11:00 06/16/24 11:30 Pulse Rate 65 63 Respiratory Rate 15 26 H Blood Pressure 103/65 Pulse Oximetry 97 97 06/16/24 11:31 06/16/24 11:31 06/16/24 12:00 Pulse Rate 65 60 Respiratory Rate 25 H 15 Blood Pressure 123/65 Pulse Oximetry 99 97 06/16/24 12:01 06/16/24 12:01 06/16/24 12:30 Pulse Rate 70 Respiratory Rate 32 H Blood Pressure 117/62 114/63 Pulse Oximetry 97 06/16/24 12:30 06/16/24 13:00 06/16/24 13:00 Pulse Rate 60 60 Respiratory Rate 15 21 Blood Pressure 117/81 Pulse Oximetry 100 100 06/16/24 13:30 06/16/24 13:30 06/16/24 14:00 Pulse Rate 58 L 56 L Respiratory Rate 15 16 Blood Pressure 103/62 Pulse Oximetry 97 98 06/16/24 14:00 Pulse Rate Respiratory Rate Blood Pressure 111/57 L Pulse Oximetry MDM - Chest Pain Lab Data 06/16/24 10:10 06/16/24 10:10 Labs: Lab Results 06/16/24 06/16/24 Range/Units 10:10 12:21 WBC 7.5 (4.5-11.0) X10^3/uL RBC 4.56 (4.5-5.9) X10^6/uL Hgb 14.7 (13.5-17.5) g/dL Hct 43.5 (41-53) % MCV 95.5 (80-100) fL MCH 32.3 (26-34) PG MCHC 33.8 (30-36) % RDW 13.5 (11.6-14.8) % Plt Count 126 L (150-400) X10^3/uL Neut % (Auto) 64.4 (50-75) % Lymph % (Auto) 25.7 (25-40) % Nolan % (Auto) 8.2 (3-14) % Eos % (Auto) 1.1 L (2-4) % Baso % (Auto) 0.6 (0-2) % Neut # (Auto) 4800 (4848-2369) /uL Lymph # (Auto) 1900 (1129-6668) /uL Nolan # (Auto) 600 (0-900) /uL Eos # (Auto) 100 (0-450) /uL Baso # (Auto) 0 (0-100) /uL PT 11.8 (9.4-12.5) SECONDS INR 1.0 (0.9-1.3) APTT 37 H (25.1-36.5) SECONDS Sodium 138 (137-145) mmol/L Potassium 4.4 (3.4-5.1) mmol/L Chloride 106 (98-107) mmol/L Carbon Dioxide 28 (22-32) mmol/L BUN 20 (9-20) mg/dL Creatinine 0.98 (0.66-1.25) mg/dL Estimated GFR > 60 (>60) mL/min BUN/Creatinine Ratio 20.4 (6-22) Glucose 94 (80-110) mg/dL Calcium 9.3 (8.4-10.2) mg/dL Magnesium 2.0 (1.6-2.3) mg/dL Total Bilirubin 0.9 (0.2-1.3) mg/dL AST 30 (17-59) IU/L ALT 20 (<50) IU/L Alkaline Phosphatase 72 (38-126) U/L Total Creatine Kinase 75 (55-170) U/L Troponin I < 0.012 < 0.012 (0.01-0.034) ng/mL NT-Pro-B Natriuret Pep 88 (<125) pg/mL Total Protein 7.0 (6.3-8.2) g/dL Albumin 4.3 (3.5-5.0) g/dL Globulin 2.7 (1.7-4.1) g/dL Albumin/Globulin Ratio 1.6 (1.0-2.8) Lipase 72 (23-300) U/L Imaging Data Chest x-ray: Radiologist's Impression: PROCEDURE: XR CHEST 1V INDICATIONS: chest pain TECHNIQUE: One view of the chest was acquired. COMPARISON: [facility], , XR CHEST 1V, 05/18/2019, 18:51. FINDINGS: Surgical changes and devices: None. Lungs and pleura: Lungs are clear. No pleural effusions or pneumothorax. Mediastinum: Mediastinal contours appear normal. Heart size is normal. Bones and chest wall: No suspicious bony lesions. Overlying soft tissues appear unremarkable. IMPRESSION: No acute cardiopulmonary abnormality is seen. Dictated by: Dorian Clinton M.D. on 06/16/2024 at 10:20 Carotid dopplers: Radiologist's Impression: PROCEDURE: US CAROTID DOPPLER BI INDICATIONS: dizzy TECHNIQUE: Color and pulse Doppler interrogation was performed of both carotid systems, with image documentation and velocity measurements. COMPARISON: None. FINDINGS: Stenosis calculations are based on SRU (Society of Radiologists in Ultrasound) criteria. Right side: Brachial blood pressure: Not obtained Common carotid artery peak systolic velocity: 97 cm/sec. Internal carotid artery peak systolic velocity: 133 cm/sec. Internal carotid artery end diastolic velocity: 36 cm/sec. External carotid artery peak systolic velocity: 112 cm/sec. ICA/CCA peak systolic ratio: 1.4 . Watson scale imaging description: Qcxn-si-prfnrhds calcified plaque Percent internal carotid artery stenosis: 50-69% . Vertebral artery: Flow direction is antegrade. Left side: Brachial blood pressure: 114/63 Common carotid artery peak systolic velocity: 83 cm/sec. Internal carotid artery peak systolic velocity: 136 cm/sec. Internal carotid artery end diastolic velocity: 60 cm/sec. External carotid artery peak systolic velocity: 105 cm/sec. ICA/CCA peak systolic ratio: 1.6 . Wtason scale imaging description: Tktz-dn-lorzsjrv calcified plaque Percent internal carotid artery stenosis: 50-69% . Vertebral artery: Flow direction is antegrade. IMPRESSION: 1. In the right carotid artery, there is 50-69% stenosis based on peak systolic velocity criteria. 2. In the left carotid artery, there is 50-69% stenosis based on peak systolic velocity criteria. 3. Antegrade vertebral arteries. Dictated by: Mike Winchester M.D. on 06/16/2024 at 13:46 Approved by: Mike Winchester M.D. on 06/16/2024 at 13:47 ECG Data Attestation: I personally reviewed and interpreted this ECG as follows: Prior ECG tracings: available for review Interpretation: Sinus rhythm rate 65 PVC noted bigeminy no acute ST changes artifact noted EKG 2. Sinus rhythm rate 61 frequent PVC MDM Narrative Medical decision making narrative: MDM CC: Chest pain weakness dizziness Complicating co-morbidities: Hyperlipidemia Data collected from: . Medical records reviewed: Recent finger amputation and injury Differential considered: Dehydration carotid stenosis arrhythmia acute coronary syndrome Exam documented above, pertinent findings include: Awake alert 73-year-old male NIH stroke scale 0 Lab Test results independently reviewed as above. Pertinent findings: Troponin negative x2 CBC no anemia no leukocytosis CMP no electrolyte abnormality no DONA AST ALT bilirubin within normal limits Independently reviewed EKG as above Frequent PVCs trigeminy no ischemia Imaging studies independently reviewed: Chest x-ray no acute cardiopulmonary process Carotid Doppler bilateral carotid artery stenosis 50-69% Treatments: none Re-evaluations: Patient remained stable in the ED no further chest pain or dizziness. Discussion: 73-year-old male history of hyperlipidemia mom has history of carotid stenosis which caused stroke presenting today with some dizziness and chest pain. He was pain challenge atypical. Sharp shooting lasting only seconds although today he did have come heaviness. He has a heart score of 3 actually has follow up with PCP next week as a routine yearly exam. He was noted to have frequent PVCs are monitor trigeminy I suspect this maybe what he was feeling. At this time recommend outpatient follow-up as scheduled Discharge Plan Departure Patient Disposition: Home Clinical Impression: Frequent unifocal PVCs Instructions: Premature Ventricular Beats, DI for Atypical Chest Pain Activity Restrictions/Additional Instructions: *You have been diagnosed with chest pain *What to do: At this time you do have frequent skipped beats. I do recommend that you get a Holter monitor. This may or may not be causing some of your issues. Please follow up with your primary care *Continue to take medications as directed *Follow up with your primary care provider in 2-3 days or call [phone] *Return to ER if you should have increasing chest pain palpitations passing [or] any new, worsening or concerning symptoms Prescriptions: No Action atorvastatin 10 mg tablet See Rx Instructions .ROUTE .COMPLEX Qty: 90 3RF Dose Instruction: TAKE 1 TABLET EVERY MORNING Rx Instructions: TAKE 1 TABLET EVERY MORNING Vitamina D PO Vitamin C PO cephalexin 500 mg capsule 500 mg PO TID Qty: 20 0RF hydrocodone-acetaminophen 5-325 mg tablet 1 tab PO Q8H PRN (Reason: pain) Qty: 10 0RF Referrals: Martin Mcguire DO [Primary Care Provider] - Stand Alone Forms: Patient Portal/API/Survey
--- NOTE | 2024-06-16 11:53 | EKG_ITS ---
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
--- NOTE | 2024-06-16 11:55 | DI.US.S_ITS ---
PROCEDURE: US CAROTID DOPPLER BI INDICATIONS: dizzy TECHNIQUE: Color and pulse Doppler interrogation was performed of both carotid systems, with image documentation and velocity measurements. COMPARISON: None. FINDINGS: Stenosis calculations are based on SRU (Society of Radiologists in Ultrasound) criteria. Right side: Brachial blood pressure: Not obtained Common carotid artery peak systolic velocity: 97 cm/sec. Internal carotid artery peak systolic velocity: 133 cm/sec. Internal carotid artery end diastolic velocity: 36 cm/sec. External carotid artery peak systolic velocity: 112 cm/sec. ICA/CCA peak systolic ratio: 1.4 . Watson scale imaging description: Wzze-cw-pjcgckzo calcified plaque Percent internal carotid artery stenosis: 50-69% . Vertebral artery: Flow direction is antegrade. Left side: Brachial blood pressure: 114/63 Common carotid artery peak systolic velocity: 83 cm/sec. Internal carotid artery peak systolic velocity: 136 cm/sec. Internal carotid artery end diastolic velocity: 60 cm/sec. External carotid artery peak systolic velocity: 105 cm/sec. ICA/CCA peak systolic ratio: 1.6 . Watson scale imaging description: Koov-wt-aprihjtk calcified plaque Percent internal carotid artery stenosis: 50-69% . Vertebral artery: Flow direction is antegrade. IMPRESSION: 1. In the right carotid artery, there is 50-69% stenosis based on peak systolic velocity criteria. 2. In the left carotid artery, there is 50-69% stenosis based on peak systolic velocity criteria. 3. Antegrade vertebral arteries. Dictated by: Mike Winchester M.D. on 06/16/2024 at 13:46 Approved by: Mike Winchester M.D. on 06/16/2024 at 13:47
[2024-06-16 12:55] LABS: Troponin I < 0.012 ng/mL (0.01-0.034)
== END 2024-06-16 14:12 | disposition home or self-care (01) ==
PROVIDERS: Emergency Provider Emergency Medicine; Family Provider Family Medicine; PCP Family Medicine
DX: I49.3 Ventricular premature depolarization (principal); E78.5 Hyperlipidemia, unspecified; R07.9 Chest pain, unspecified
CPT/HCPCS: 36415; 71045; 80053; 82550; 83690; 83735; 83880; 84484; 85025; 85610; 85730; 93005; 93880; 99284

== ENCOUNTER → 2024-07-25 09:59 | Outpatient (CLI) | payer MEDICARE, OTHER, SELFPAY ==
[2024-01-10 07:13] VITALS: BMI 24.3
[2024-07-25 10:25] LABS: Add Manual Diff / Slide Review NO; Basophils Absolute Auto 0 /uL (0-100); Basophils Percent Auto 0.3 % (0-2); Eosinophils Absolute Auto 100 /uL (0-450); Eosinophils Percent Auto 0.9 % (2-4); Hematocrit 43.5 % (41-53); Hemoglobin 14.8 g/dL (13.5-17.5); Lymphocytes Absolute Auto 2000 /uL (1100-4500); Lymphocytes Percent Auto 28.4 % (25-40); Mean Corpuscular HGB Conc 34.1 % (30-36); Mean Corpuscular Hemoglobin 32.3 PG (26-34); Mean Corpuscular Volume 94.7 fL (80-100); Monocytes Absolute Auto 500 /uL (0-900); Monocytes Percent Auto 7.6 % (3-14); Neutrophils Absolute Auto 4500 /uL (1500-7000); Neutrophils Percent Auto 62.8 % (50-75); Platelet Count 114 X10^3/uL (150-400); Red Blood Cell Count 4.59 X10^6/uL (4.5-5.9); Red Cell Distribution Width 13.5 % (11.6-14.8); White Blood Cell Count 7.1 X10^3/uL (4.5-11.0)
[2024-07-25 10:37] LABS: BUN Creatinine Ratio 19.5 (6-22); Blood Urea Nitrogen 17 mg/dL (9-20); Calcium 9.1 mg/dL (8.4-10.2); Carbon Dioxide 27 mmol/L (22-32); Chloride 105 mmol/L (98-107); Estimated Glomerular Filt Rate > 60 mL/min (>60); Glucose 94 mg/dL (80-110); HEMOLYSIS 33 (0-50); Potassium 4.5 mmol/L (3.4-5.1); Sodium 140 mmol/L (137-145)
== END ==
PROVIDERS: Family Provider Family Medicine; PCP Family Medicine; Referring Provider Internal Medicine Cardiovascular Disease; Visit Provider Internal Medicine Cardiovascular Disease
DX: R06.09 Other forms of dyspnea (principal); E78.2 Mixed hyperlipidemia; I47.29 Other ventricular tachycardia; I49.3 Ventricular premature depolarization
CPT/HCPCS: 36415; 80048; 85025

== ENCOUNTER 2024-08-12 14:34 | Emergency (ER) | payer MEDICARE, OTHER, SELFPAY ==
[2024-01-10 07:13] VITALS: BMI 24.3
[2024-08-12] VITALS (31 sets, daily range): BP systolic 103–137; BP diastolic 55–85; PULSE 62–72; RESP 9–23; TEMP 36.4; O2SAT 94–98; BMI 24.0
--- NOTE | 2024-08-12 14:40 | DI.RAD.S_ITS ---
PROCEDURE: XR CHEST 1V INDICATIONS: chest pain TECHNIQUE: One view of the chest was acquired. COMPARISON: [facility], STACY, XR CHEST 1V, 06/16/2024, 9:54. [facility], CR, XR CHEST 1V, 05/18/2019, 18:51. FINDINGS: Surgical changes and devices: Left chest wall generator. Lungs and pleura: Peribronchial cuffing. Increased pulmonary markings. Mediastinum: Mediastinal contours appear normal. Heart size is mildly enlarged. Bones and chest wall: No suspicious bony lesions. Overlying soft tissues appear unremarkable. IMPRESSION: Suspected mild pulmonary edema. Dictated by: Bola Garcia M.D. on 08/12/2024 at 15:10 Approved by: Bola Garcia M.D. on 08/12/2024 at 15:10
--- NOTE | 2024-08-12 14:40 | EKG_ITS ---
[address] [address] Test Date: 2024-08-12 Pat Name: Phil Craft Department: Room: Gender: Male Patient Service Technician Pst: SHAYLA : 1950 Requested By: Order Number: [id number] Reading MD: Darnell Echevarria MD Measurements Intervals [place] Rate: 70 P: 29 ME: 190 QRS: -7 QRSD: 86 T: 19 QT: 416 QTc: 449 Interpretive Statements Sinus rhythm with frequent premature ventricular complexes Electronically Signed On 08-12-2024 15:05:18 PDT by Darnell Echevarria MD
[2024-08-12] MEDS: ASPIRIN 81 MG CHEW TAB 324 MG PO (15:06)
[2024-08-12 15:11] LABS: Add Manual Diff / Slide Review NO; Basophils Absolute Auto 0 /uL (0-100); Basophils Percent Auto 0.4 % (0-2); Eosinophils Absolute Auto 100 /uL (0-450); Eosinophils Percent Auto 0.6 % (2-4); Hematocrit 41.7 % (41-53); Hemoglobin 14.1 g/dL (13.5-17.5); Lymphocytes Absolute Auto 1900 /uL (1100-4500); Mean Corpuscular HGB Conc 33.8 % (30-36); Mean Corpuscular Hemoglobin 31.9 PG (26-34); Mean Corpuscular Volume 94.4 fL (80-100); Monocytes Absolute Auto 700 /uL (0-900); Monocytes Percent Auto 7.4 % (3-14); Neutrophils Absolute Auto 6900 /uL (1500-7000); Neutrophils Percent Auto 71.6 % (50-75); Platelet Count 103 X10^3/uL (150-400); Red Blood Cell Count 4.42 X10^6/uL (4.5-5.9); Red Cell Distribution Width 13.2 % (11.6-14.8); White Blood Cell Count 9.6 X10^3/uL (4.5-11.0)
--- NOTE | 2024-08-12 15:12 | ED.CHESTPAIN ---
HPI - Chest Pain General Chief Complaint: Chest Pain Stated Complaint: Chest pain, SOB, poss heart attack Time Seen by Provider: 08/12/24 15:12 History of Present Illness HPI narrative: 74-year-old gentleman history of CAD with 2 stents 2 weeks ago all was helping his son move some furniture when he started to develop chest pain and got sweaty. He denies any radiating symptoms or shortness of breath or dyspnea on exertion now after taking 3 nitros for which he is now completely chest pain-free. Other than what is stated 14 point review of system is negative Related Data Home Medications Medication Instructions Recorded Confirmed Vitamin C PO 06/16/21 05/09/24 Vitamina D PO 06/16/21 05/09/24 Previous Rx's Medication Instructions Recorded atorvastatin 10 mg tablet See Rx Instructions .Route 11/02/22 .COMPLEX #90 tabs cephalexin 500 mg capsule 500 mg PO TID #20 caps 06/01/24 hydrocodone 5 mg-acetaminophen 325 1 tab PO Q8H PRN pain #10 tabs 06/01/24 mg tablet Allergies Allergy/AdvReac Type Severity Reaction Status Date / Time No Known Drug Allergies Allergy Verified 05/09/24 14:27 Review of Systems Review of Systems ROS Unobtainable: All systems reviewed & are unremarkable except as noted in HPI and below Patient History Medical History Family history of prostate cancer in father Excessive cerumen in right ear canal Lower abdominal pain Testicular pain GERD (gastroesophageal reflux disease) Hiatal hernia Hyperlipidemia Shoulder pain, left Other and unspecified hyperlipidemia (04/02/11) Chest pain Chronic headaches (2010) Herpes (1976) Chronic back pain (2003) Chronic cough Cardiac arrhythmia (10/19/14) Surgical History Anesthesia History of right knee surgery History of shoulder surgery (2006) History of shoulder surgery (2006) Status post hernia repair (2012) Family History Father Cancer Lung cancer Mother Cancer Brother No problems noted. Social History marital status: unmarried,single number of children: 2 household members: significant other Smoking Status: Never smoker alcohol intake: current Smoking Status: Never smoker alcohol intake frequency: a few times a week Alcohol type: beer Exam Narrative Exam Narrative: GENERAL: [74] year old patient appears stated age. Well-developed patient, in mild distress. HEAD: Atraumatic. Normocephalic. EYES: Pupils equal round and reactive. Extraocular motions intact. No scleral icterus. No injection or drainage. ENT: Nose without bleeding, purulent drainage. Throat without erythema, tonsillar hypertrophy or exudate. Airway patent. NECK: Trachea midline. Non tender CARDIOVASCULAR: Regular rate and rhythm without murmurs, gallops, or rubs. RESPIRATORY: Clear to auscultation. Breath sounds equal bilaterally. No wheezes, rales, or rhonchi. GASTROINTESTINAL: Abdomen soft, non-tender, nondistended. EXTREMITIES: No edema or joint tenderness. BACK: Nontender without deformity or crepitance. No flank tenderness. NEURO: AOx3. SKIN: No rash or erythema of visible areas Initial Vital Signs Initial Vital Signs: Vital Signs Temperature 97.6 F 08/12/24 14:41 Pulse Rate 66 08/12/24 14:41 Respiratory Rate 16 08/12/24 14:41 Blood Pressure 123/76 08/12/24 14:41 Pulse Oximetry 94 08/12/24 14:41 Oxygen Delivery Method Room Air 08/12/24 14:41 Scores HEART Score Heart Score history: Moderately Suspicious Heart Score EKG: Normal Heart Score Age: > or = 65 years old Heart Score risk factors: > 3 risk factors or hx of atherosclerotic disease Heart Score troponin: < or = to normal limit Heart Score Total: 5 Course Course Course Narrative: All labwork, imaging, ekg, RN note, triage note, medication list, old records from previous visits, vital signs all reviewed. Pt given asa and nitropaste 1 inch. Pt chest pain free. Differential diagnosis STEMI, NSTEMI, unstable angina, stent occlusion. Follow with PCP and/or mine shifter this week. Return with new or worsening symptoms Orders Ordered: ED Orders 08/12/24 14:40 XR chest 1V Stat EKG-12 Lead Stat 08/12/24 14:50 Complete Blood Count AUTO DIFF Stat Comprehensive Metabolic Panel Stat Lipase Stat Magnesium Stat NT-proBNP (BNP-Adult 18+) Stat PTT Partial Thromboplastin Ant Stat Prothrombin Time INR Stat Troponin & CK Cardiac Panel Stat 08/12/24 15:19 EKG-12 Lead Stat 08/12/24 17:05 Trop I [Troponin I] Stat Discontinued Medications Aspirin (Aspirin 81 Mg Chew Tab) 324 mg PO NOW ONE Stop: 08/12/24 14:59 Last Admin: 08/12/24 15:06 Dose: 324 mg Documented By: LARISSA Sodium Chloride (Normal Saline 0.9%) 1,000 mls @ 150 mls/hr IV CONT ANTOINETTE Last Infusion: 08/12/24 18:13 Dose: Infused Documented By: Admin: 08/12/24 15:32 Dose: 150 mls/hr Documented By: LARISSA Nitroglycerin (Nitroglycerin Oint 1 Inch/Gm Oint...G.) 1 inch TOP NOW ONE Stop: 08/12/24 15:20 Last Admin: 08/12/24 15:33 Dose: 1 inch Documented By: LARISSA Vital Signs Vital signs: Vital Signs - 8 hr 08/12/24 14:41 08/12/24 15:08 08/12/24 15:30 Temperature 97.6 F Pulse Rate 66 72 Respiratory Rate 16 15 Blood Pressure 123/76 125/69 Pulse Oximetry 94 96 Oxygen Delivery Method Room Air 08/12/24 15:30 08/12/24 15:33 08/12/24 15:35 Temperature Pulse Rate 68 67 Respiratory Rate 13 Blood Pressure 125/69 131/62 Pulse Oximetry 96 Oxygen Delivery Method 08/12/24 15:35 08/12/24 15:40 08/12/24 15:40 Temperature Pulse Rate 71 70 Respiratory Rate 23 22 Blood Pressure 121/59 L Pulse Oximetry 97 95 Oxygen Delivery Method 08/12/24 15:45 08/12/24 15:45 08/12/24 15:50 Temperature Pulse Rate 67 68 Respiratory Rate 15 9 L Blood Pressure 117/67 Pulse Oximetry 95 96 Oxygen Delivery Method 08/12/24 15:50 08/12/24 15:55 08/12/24 15:55 Temperature Pulse Rate 66 Respiratory Rate 11 L Blood Pressure 115/70 107/61 Pulse Oximetry 96 Oxygen Delivery Method 08/12/24 16:00 08/12/24 16:00 08/12/24 16:05 Temperature Pulse Rate 67 Respiratory Rate 11 L Blood Pressure 107/56 L 107/56 L Pulse Oximetry 95 Oxygen Delivery Method 08/12/24 16:05 08/12/24 16:10 08/12/24 16:10 Temperature Pulse Rate 66 65 Respiratory Rate 10 L 12 Blood Pressure 103/55 L Pulse Oximetry 95 95 Oxygen Delivery Method Room Air 08/12/24 16:15 08/12/24 16:15 08/12/24 16:20 Temperature Pulse Rate 65 Respiratory Rate 16 Blood Pressure 110/57 L 128/63 Pulse Oximetry 97 Oxygen Delivery Method Room Air 08/12/24 16:20 08/12/24 16:26 08/12/24 16:26 Temperature Pulse Rate 68 66 Respiratory Rate 15 22 Blood Pressure 115/55 L Pulse Oximetry 97 97 Oxygen Delivery Method 08/12/24 16:30 08/12/24 16:31 08/12/24 16:31 Temperature Pulse Rate 64 65 Respiratory Rate 12 15 Blood Pressure 110/76 Pulse Oximetry 97 95 Oxygen Delivery Method 08/12/24 16:35 08/12/24 16:35 08/12/24 16:40 Temperature Pulse Rate 62 Respiratory Rate 13 Blood Pressure 113/72 124/60 Pulse Oximetry 96 Oxygen Delivery Method 08/12/24 16:40 08/12/24 16:45 08/12/24 16:45 Temperature Pulse Rate 64 65 Respiratory Rate 16 14 Blood Pressure 107/57 L Pulse Oximetry 96 96 Oxygen Delivery Method Room Air 08/12/24 16:50 08/12/24 16:50 08/12/24 16:55 Temperature Pulse Rate 64 Respiratory Rate 13 Blood Pressure 115/56 L 112/60 Pulse Oximetry 96 Oxygen Delivery Method 08/12/24 16:55 08/12/24 17:00 08/12/24 17:00 Temperature Pulse Rate 63 63 Respiratory Rate 17 15 Blood Pressure 115/60 Pulse Oximetry 95 96 Oxygen Delivery Method 08/12/24 17:05 08/12/24 17:05 08/12/24 17:11 Temperature Pulse Rate 63 Respiratory Rate 17 Blood Pressure 114/71 137/85 Pulse Oximetry 96 Oxygen Delivery Method 08/12/24 17:11 08/12/24 17:15 08/12/24 17:15 Temperature Pulse Rate 66 63 Respiratory Rate 20 14 Blood Pressure 112/72 Pulse Oximetry 97 95 Oxygen Delivery Method 08/12/24 17:20 08/12/24 17:20 08/12/24 17:25 Temperature Pulse Rate 64 63 Respiratory Rate 13 14 Blood Pressure 113/72 Pulse Oximetry 96 96 Oxygen Delivery Method Room Air 08/12/24 17:25 08/12/24 17:30 08/12/24 17:30 Temperature Pulse Rate 63 Respiratory Rate 17 Blood Pressure 116/61 117/73 Pulse Oximetry 96 Oxygen Delivery Method 08/12/24 17:46 08/12/24 17:46 08/12/24 18:00 Temperature Pulse Rate 62 Respiratory Rate 18 Blood Pressure 115/61 124/83 Pulse Oximetry 98 Oxygen Delivery Method Room Air 08/12/24 18:00 Temperature Pulse Rate 68 Respiratory Rate 20 Blood Pressure Pulse Oximetry 97 Oxygen Delivery Method MDM - Chest Pain Lab Data Attestation: I reviewed the patient's lab results. 08/12/24 14:50 08/12/24 14:50 Labs: Lab Results 08/12/24 08/12/24 Range/Units 14:50 17:05 WBC 9.6 (4.5-11.0) X10^3/uL RBC 4.42 L (4.5-5.9) X10^6/uL Hgb 14.1 (13.5-17.5) g/dL Hct 41.7 (41-53) % MCV 94.4 (80-100) fL MCH 31.9 (26-34) PG MCHC 33.8 (30-36) % RDW 13.2 (11.6-14.8) % Plt Count 103 L (150-400) X10^3/uL Neut % (Auto) 71.6 (50-75) % Lymph % (Auto) 20.0 L (25-40) % [place] % (Auto) 7.4 (3-14) % Eos % (Auto) 0.6 L (2-4) % Baso % (Auto) 0.4 (0-2) % Neut # (Auto) 6900 (8513-5242) /uL Lymph # (Auto) 1900 (1776-0377) /uL [place] # (Auto) 700 (0-900) /uL Eos # (Auto) 100 (0-450) /uL Baso # (Auto) 0 (0-100) /uL PT 12.1 (9.4-12.5) SECONDS INR 1.1 (0.9-1.3) APTT 35 (25.1-36.5) SECONDS Sodium 139 (137-145) mmol/L Potassium 3.9 (3.4-5.1) mmol/L Chloride 108 H (98-107) mmol/L Carbon Dioxide 21 L (22-32) mmol/L BUN 19 (9-20) mg/dL Creatinine 0.96 (0.66-1.25) mg/dL Estimated GFR > 60 (>60) mL/min BUN/Creatinine Ratio 19.8 (6-22) Glucose 112 H (80-110) mg/dL Calcium 9.4 (8.4-10.2) mg/dL Magnesium 1.7 (1.6-2.3) mg/dL Total Bilirubin 0.8 (0.2-1.3) mg/dL AST 33 (17-59) IU/L ALT 27 (<50) IU/L Alkaline Phosphatase 67 (38-126) U/L Total Creatine Kinase 71 (55-170) U/L Troponin I < 0.012 < 0.012 (0.01-0.034) ng/mL NT-Pro-B Natriuret Pep 166 (<450) pg/mL Total Protein 6.7 (6.3-8.2) g/dL Albumin 4.0 (3.5-5.0) g/dL Globulin 2.7 (1.7-4.1) g/dL Albumin/Globulin Ratio 1.5 (1.0-2.8) Lipase 69 (23-300) U/L Imaging Data Chest x-ray: My Impression: [address] [address] XRay Report Signed Patient: Phil Craft MR#: [id number] : 1950 Acct:[id number] Age/Sex: 74 / M Date of Service: 08/12/24 Loc: ED Accession Number: [id number] Procedure: XR chest 1V Ordering Provider: Darnell Dorado D.O. PROCEDURE: XR CHEST 1V INDICATIONS: chest pain TECHNIQUE: One view of the chest was acquired. COMPARISON: [facility], CR, XR CHEST 1V, 06/16/2024, 9:54. [facility], CR, XR CHEST 1V, 05/18/2019, 18:51. FINDINGS: Surgical changes and devices: Left chest wall generator. Lungs and pleura: Peribronchial cuffing. Increased pulmonary markings. Mediastinum: Mediastinal contours appear normal. Heart size is mildly enlarged. Bones and chest wall: No suspicious bony lesions. Overlying soft tissues appear unremarkable. IMPRESSION: Suspected mild pulmonary edema. ECG Data Interpretation: HR 70 Sinus Rhythm with PVC No St-t wave changes No change compated to 06/16/24 Undetermined axis MDM Narrative Medical decision making narrative: All labwork, imaging, ekg, RN note, triage note, medication list, old records from previous visits, vital signs all reviewed. Differential diagnosis includes STEMI NSTEMI stent occlusion unstable angina. Patient will follow up with PCP tomorrow and/or mine shifter this week as well. And to return with new or worsening symptoms Discharge Plan Departure Patient Disposition: Home Clinical Impression: Chest pain Instructions: DI for Chest Pain Activity Restrictions/Additional Instructions: Return with new or worsening symptoms and follow up with PCP appointment tomorrow morning Prescriptions: No Action atorvastatin 10 mg tablet See Rx Instructions .ROUTE .COMPLEX Qty: 90 3RF Dose Instruction: TAKE 1 TABLET EVERY MORNING Rx Instructions: TAKE 1 TABLET EVERY MORNING Vitamina D PO Vitamin C PO cephalexin 500 mg capsule 500 mg PO TID Qty: 20 0RF hydrocodone-acetaminophen 5-325 mg tablet 1 tab PO Q8H PRN (Reason: pain) Qty: 10 0RF Referrals: Martin Mcguire DO [Primary Care Provider] - Stand Alone Forms: Patient Portal/API/Survey
[2024-08-12 15:14] LABS: INR 1.1 (0.9-1.3); Prothrombin Time 12.1 SECONDS (9.4-12.5)
[2024-08-12 15:17] LABS: PTT Partial Thromboplastin Tim 35 SECONDS (25.1-36.5)
[2024-08-12 15:19] LABS: Alanine Aminotransferase 27 IU/L (<50); Albumin Globulin Ratio 1.5 (1.0-2.8); Alkaline Phosphatase 67 U/L (38-126); Aspartate Aminotransferase 33 IU/L (17-59); BUN Creatinine Ratio 19.8 (6-22); Bilirubin Total 0.8 mg/dL (0.2-1.3); Blood Urea Nitrogen 19 mg/dL (9-20); Calcium 9.4 mg/dL (8.4-10.2); Carbon Dioxide 21 mmol/L (22-32); Chloride 108 mmol/L (98-107); Creatine Kinase 71 U/L (55-170); Estimated Glomerular Filt Rate > 60 mL/min (>60); Globulin 2.7 g/dL (1.7-4.1); Glucose 112 mg/dL (80-110); HEMOLYSIS < 15 (0-50); Lipase 69 U/L (23-300); Magnesium 1.7 mg/dL (1.6-2.3); Potassium 3.9 mmol/L (3.4-5.1); Sodium 139 mmol/L (137-145); Total Protein 6.7 g/dL (6.3-8.2)
[2024-08-12 15:31] LABS: NT-proBNP (BNP-Adult 18+) 166 pg/mL (<450); Troponin I < 0.012 ng/mL (0.01-0.034)
[2024-08-12] MEDS: SODIUM CHLORIDE 0.9% 1,000 ML 150 ML IV (15:32)
[2024-08-12] MEDS: NITROGLYCERIN OINT 1 INCH/GM OINT...G. TOP (15:33)
[2024-08-12 17:35] LABS: Troponin I < 0.012 ng/mL (0.01-0.034)
--- NOTE | 2024-08-12 18:19 | PC.NURSE ---
Nitro patch removed prior to d/c. VSS at time of D/C
== END 2024-08-12 18:14 | disposition home or self-care (01) ==
PROVIDERS: Emergency Provider Family Medicine; Family Provider Family Medicine; PCP Family Medicine
DX: R07.9 Chest pain, unspecified (principal); I49.3 Ventricular premature depolarization; I25.10 Atherosclerotic heart disease of native coronary artery without angina pectoris; Z95.5 Presence of coronary angioplasty implant and graft
CPT/HCPCS: 71045; 80053; 82550; 83690; 83735; 83880; 84484; 85025; 85610; 85730; 93005; 93010; 96360; 96361; 99284

== ENCOUNTER → 2024-12-14 07:11 | Outpatient (CLI) | payer MEDICARE, OTHER, SELFPAY ==
[2024-01-10 07:13] VITALS: BMI 24.3
--- NOTE | 2024-12-14 07:14 | DI.MRI.S_ITS ---
PROCEDURE: MR HAND LT WO CON INDICATIONS: Traumatic amputation of left middle finger TECHNIQUE: Noncontrast coronal T1 spin echo and T2 fast spin echo with fat saturation, axial proton density fast spin echo and T2 fast spin echo with fat saturation, sagittal T1 spin echo and STIR through the hand and fingers. COMPARISON: [facility], CR, XR FINGER(S) LEFT, 06/09/2024, 14:36. FINDINGS: Image quality: Excellent. 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 There is mild degenerative changes of the 3rd distal interphalangeal joint, with mild subchondral marrow edema. Mild degenerative change of the 1st carpal metacarpal joint. Multifocal small T2 hyperintensity in the carpal bones, nonspecific and may be degenerative. Interphalangeal joint(s): The accessory and proper collateral ligaments appear intact. The volar plate demonstrates normal morphology. The extensor central slips appear intact on sagittal images. Metacarpophalangeal joint(s): The accessory and proper collateral ligaments appear intact, as well as the volar plate and adjacent deep transverse metacarpal ligaments. The sagittal bands of the extensor alejandro appear normal. Extensor apparatus: The central slips insert normally on the middle phalangeal base. The conjoint and terminal tendons insert normally on the distal phalangeal bases. More proximal portions of the extensor tendons also appear normal. Flexor apparatus: Full-thickness tear of the flexor tendon of the 3rd digit at the middle phalanx, with tendon retraction to the level of the 3rd proximal interphalangeal joint. The 3rd flexor profundus tendon is redundant at the level of the metacarpal. Soft tissues: Visualized muscles demonstrate normal bulk and internal signal. No intramuscular masses identified. Cluster of ganglion cyst dorsal to the lunate- capitate articulation, measuring 1.1 cm overall (5:5). Small ganglion cyst volar to the triscaphe joint, measuring 1.2 cm. IMPRESSION: 1. 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 2. Mild degenerative changes as described above. 3. Full-thickness tear of the 3rd flexor tendons at the level of the middle phalanx, with tendon retraction to the level of the 3rd proximal interphalangeal joint. Redundant 3rd flexor profundus tendons. 4. Ganglion cysts about the wrist, measuring up to 1.2 cm. Dictated by: Farheen Myers M.D. on 12/15/2024 at 12:08 Approved by: Farheen Myers M.D. on 12/15/2024 at 12:17
== END ==
PROVIDERS: Family Provider Family Medicine; PCP Family Medicine; Referring Provider Orthopaedic Surgery; Visit Provider Orthopaedic Surgery
DX: S68.113A Complete traumatic metacarpophalangeal amputation of left middle finger, initial encounter (principal); S66.113A Strain of flexor muscle, fascia and tendon of left middle finger at wrist and hand level, initial encounter; M67.432 Ganglion, left wrist
CPT/HCPCS: 73218

== ENCOUNTER → 2024-12-25 09:15 | Outpatient (CLI) | payer MEDICARE, OTHER, SELFPAY ==
[2024-01-10 07:13] VITALS: BMI 24.3
[2024-12-25 10:42] LABS: Alanine Aminotransferase 24 IU/L (<50); Albumin 4.2 g/dL (3.5-5.0); Albumin Globulin Ratio 1.8 (1.0-2.8); Alkaline Phosphatase 70 U/L (38-126); Blood Urea Nitrogen 19 mg/dL (9-20); Calcium 9.2 mg/dL (8.4-10.2); Carbon Dioxide 28 mmol/L (22-32); Chloride 105 mmol/L (98-107); Cholesterol 163 mg/dL (140-199); Estimated Glomerular Filt Rate > 60 mL/min (>60); Globulin 2.3 g/dL (1.7-4.1); Glucose 86 mg/dL (70-99); HDL Cholesterol 53 mg/dL (40-60); HEMOLYSIS < 15 (0-50); Potassium 4.4 mmol/L (3.4-5.1); Sodium 140 mmol/L (137-145); Total Protein 6.5 g/dL (6.3-8.2); Triglycerides 86 mg/dL (35-150)
== END ==
PROVIDERS: PCP Family Medicine; Referring Provider Nurse Practitioner; Visit Provider Nurse Practitioner
DX: E78.5 Hyperlipidemia, unspecified (principal)
CPT/HCPCS: 36415; 80053; 80061

== ENCOUNTER → 2025-05-13 14:11 | Outpatient (CLI) | payer MEDICARE, OTHER, SELFPAY ==
[2024-01-10 07:13] VITALS: BMI 24.3
--- NOTE | 2025-05-13 14:13 | DI.RAD.S_ITS ---
PROCEDURE: XR CHEST 2V INDICATIONS: Cough TECHNIQUE: 2 views of the chest were acquired. COMPARISON: [facility], CR, XR CHEST 1V, 08/12/2024, 14:42. [facility], CR, XR CHEST 1V, 06/16/2024, 9:54. FINDINGS: Surgical changes and devices: Postsurgical changes of the right acromioclavicular joint. Lungs and pleura: Lungs are clear. No pleural effusions or pneumothorax. Mediastinum: Mediastinal contours are normal. Heart size is normal. Bones and chest wall: No suspicious bony abnormalities. Soft tissues appear unremarkable. IMPRESSION: No acute cardiopulmonary abnormality is seen. Approved by: Lisandro Scott M.D. on 05/13/2025 at 14:36
== END ==
PROVIDERS: PCP Family Medicine; Referring Provider Nurse Practitioner Family; Visit Provider Nurse Practitioner Family
DX: R05.9 Cough, unspecified (principal)
CPT/HCPCS: 71046